=== PATIENT | female | born 1960 | race Hispanic/Latino ===

== ENCOUNTER 2025-01-19 21:16 | Inpatient (IN) | payer MEDICARE ==
[~2025-01-19] VITALS: Ht 162.6 cm; Wt 58.1 kg
[2025-01-19 22:22] LABS: BASOPHILS # (AUTO) 0.09 K/uL (0.00-0.20); BASOPHILS % (AUTO) 0.9 % (0.0-5.0); EOSINOPHILS # (AUTO) 0.06 K/uL (0.00-0.70); EOSINOPHILS % (AUTO) 0.6 % (0.0-8.0); HEMATOCRIT 39.1 % (36-48); IMMATURE GRANULOCYTE ABSOLUTE 0.04 K/uL (0-1); LYMPHOCYTES # (AUTO) 1.4 K/uL (1.0-4.8); LYMPHOCYTES % (AUTO) 14.2 % (21.0-51.0); MEAN CORPUSCULAR HEMOGLOBIN 27.4 pg (27.0-33.0); MEAN CORPUSCULAR HGB CONC 32.5 g/dL (32.0-36.0); MEAN CORPUSCULAR VOLUME 84.4 fL (79-99); MONOCYTES # (AUTO) 0.8 K/uL (0.1-1.0); MONOCYTES % (AUTO) 8.3 % (3.0-13.0); NEUTROPHILS # (AUTO) 7.2 K/uL (1.8-7.7); NEUTROPHILS % (AUTO) 75.6 % (40.0-77.0); PLATELET COUNT (AUTO) 442 K/uL (130-400); RED BLOOD CELL COUNT(AUTO) 4.63 MIL/uL (4.00-5.50); WHITE BLOOD COUNT (AUTO) 9.5 K/uL (4.8-10.8)
[2025-01-19 22:30] LABS: CREATININE 0.5 mg/dL (0.5-1.0); POTASSIUM 3.7 mmol/L (3.5-5.1)
[2025-01-19 22:35] LABS: ALBUMIN 3.8 g/dL (3.5-5.0); BILIRUBIN,DIRECT 0.1 mg/dL (0.0-0.3); BILIRUBIN,TOTAL 0.4 mg/dL (0.2-1.0); TOTAL PROTEIN, SERUM 7.6 g/dL (6.0-8.3)
[2025-01-19 23:07] LABS: APPEARANCE,URINE CLEAR (CLEAR); BILIRUBIN,URINE NEGATIVE (NEGATIVE); COLOR,URINE COLORLESS (YELLOW); GLUCOSE, URINE (UA) NEGATIVE (NEGATIVE); KETONES,URINE NEGATIVE (NEGATIVE); LEUKOCYTE ESTERASE ,URINE 75 Leu/uL (NEGATIVE); NITRATE,URINE NEGATIVE (NEGATIVE); OCCULT BLOOD,URINE NEGATIVE (NEGATIVE); PH,URINE 6.5 (5.0-8.0); PROTEIN,URINE NEGATIVE (NEGATIVE); UROBILINOGEN,URINE 0.2 mg/dL (0.2-1.0)
[2025-01-19 23:31] LABS: BACTERIA,URINE RARE /HPF (None Seen); RBC,URINE 0-1 /HPF (0-1)
--- NOTE | 2025-01-19 23:36 | NUR ---
PT CARE ASSUMED AT THIS TIME
[2025-01-19] MEDS ORDERED: IOHEXOL 350 MG/ML 100ML INFUS..BTL IV ONE (23:38)
[2025-01-19] MEDS: morPHINE 4 MG SYG IVP ONE (23:50)
[2025-01-20] MEDS ORDERED: hydrALAZine 20MG/ML VIAL IV ONE
--- NOTE | 2025-01-20 00:28 | HMCIMG ---
CT ABDOMEN/PELVIS W/CONTRAST HISTORY: Abdominal pain COMPARISON: None TECHNIQUE: Multiple sequential axial images of the abdomen and pelvis were obtained from the dome of the diaphragm through symphysis pubis. Patient was given 75 cc of Omnipaque through intravenous route. Oral contrast was not given. FINDINGS: There are interstitial fibrosis with bronchiectasis. No pleural effusion is seen bilaterally. There is no evidence of parenchymal disease or pulmonary nodule of the visualized lower lungs. Degenerative changes of the thoracolumbar spine are present. The heart is not enlarged. Liver is borderline enlarged measuring 16 cm. There is fluid filled small bowel loops and colon suggestive of enterocolitis. The liver, spleen, adrenal glands and pancreas are unremarkable. There is no evidence of hydronephrosis bilaterally. No evidence of renal stone is seen. Fecal material is seen in the colon. There are normal size retroperitoneal and mesenteric lymph nodes. No ascites is seen. No CT evidence of acute sinusitis is seen. Pelvic sidewalls are symmetric bilaterally. Bladder is moderately distended. IMPRESSION: 1. Fluid-filled small bowel loops and colon suggestive of enterocolitis. CT was performed with one or more following dose reduction techniques: automated exposure control, adjustment of the mA and kv according to patient's size, or use of a iterative reconstruction technique.
[2025-01-20] MEDS: cefTRIAXone 1G VIAL IVPB ONE (01:29)
[2025-01-20] MEDS: DICYCLOMINE 20MG (10MG/ML) AMP IM ONE (01:30)
[2025-01-20] MEDS: MAGNESIUM CITRATE 296 ML SOLUTION PO ONE (01:30)
--- NOTE | 2025-01-20 02:29 | ERN ---
General Chief Complaint: Abdominal Pain Stated Complaint: C/O LUQ PAIN WITH N X V Time Seen by MD: 22:00 Time Seen by Midlevel: 22:00 Source: patient History of Present Illness Initial Comments 64-year-old female who presents to the emergency department due to abdominal pain onset one week. Patient reports nausea, vomiting, constipation. Last bowel movement was three days ago. Denies any dysuria, fever, shortness of breath, chest pain or further associated symptoms. History of previous bowel obstruction. Allergies: Coded Allergies: No Known Allergies (Unverified Allergy, Unknown, 01/19/25) Past Medical History Past Medical History: Other Medical History Other: HX OF OBSTRUCTION Past Surgical History: Hysterectomy ROS Dictation Constitutional: Negative for fever,chills, and weight loss Eyes: Negative for injury, pain,redness, and discharge ENT: Negative for injury,pain or swelling Cardiovascular: Negative for chest pain, palpitations, and edema Respiratory: Negative for shortness of breath, cough, and wheezing, Abdomen/GI: Positive for abdominal pain, nausea, vomiting, and constipation Back: Negative for injury and pain : Negative for painful urination, bleeding or discharge MS/Extremity: Negative for injury and deformity Skin: Negative for rash, and discoloration Neuro: Negative for headache, weakness, numbness, tingling, and seizure Psych: Negative for suicide ideation, homicidal ideation, and hallucinations Physical Exam Physical Exam Dictation General: awake, alert, no acute distress Head/Face: Normocephalic, atraumatic Eyes: PERRL, EOMI, normal conjunctiva ENT: oral cavity clear, oral mucosa moist Neck: Supple, normal range of motion Cardiovascular: RRR, normal S1/S2 Respiratory: CTAB, no respiratory distress, no rales or wheezes Abdomen: Soft, non-tender, left upper quadrant or tenderness, normal bowel sounds, no guarding or rebound. Skin: Warm, dry, normal turgor, no rash MS/Extremity: Pulses equal, no cyanosis, neurovascular intact, FROM Neuro: COAx4, GCS 15, strength 5/5, CN 2-12 intact, normal cerebellar exam, normal gait Psych: Normal behavior, mood, and affect normal Results Laboratory and Microbiology Lab and Micro Result Laboratory Tests Test 01/19/25 22:15 01/19/25 22:57 White Blood Count 9.5 K/uL (4.8-10.8) Red Blood Count 4.63 MIL/uL (4.00-5.50) Hemoglobin 12.7 g/dL (12.0-16.0) Hematocrit 39.1 % (36-48) Mean Corpuscular Volume 84.4 fL (79-99) Mean Corpuscular Hemoglobin 27.4 pg (27.0-33.0) Mean Corpuscular Hemoglobin Concent 32.5 g/dL (32.0-36.0) Red Cell Distribution Width 15.0 % (11.0-15.5) Platelet Count 442 K/uL (130-400) H Mean Platelet Volume 9.9 fL (7.5-10.5) Immature Granulocyte % (Auto) 0.4 % (0-1) Neutrophils (%) (Auto) 75.6 % (40.0-77.0) Lymphocytes (%) (Auto) 14.2 % (21.0-51.0) L Monocytes (%) (Auto) 8.3 % (3.0-13.0) Eosinophils (%) (Auto) 0.6 % (0.0-8.0) Basophils (%) (Auto) 0.9 % (0.0-5.0) Neutrophils # (Auto) 7.2 K/uL (1.8-7.7) Lymphocytes # (Auto) 1.4 K/uL (1.0-4.8) Monocytes # (Auto) 0.8 K/uL (0.1-1.0) Eosinophils # (Auto) 0.06 K/uL (0.00-0.70) Basophils # (Auto) 0.09 K/uL (0.00-0.20) Absolute Immature Granulocyte (auto 0.04 K/uL (0-1) Nucleated Red Blood Cells 0.0 % (0.0-0.19) Sodium Level 137 mmol/L (136-145) Potassium Level 3.7 mmol/L (3.5-5.1) Chloride Level 100 mmol/L (101-111) L Carbon Dioxide Level 28 mmol/L (21-32) Blood Urea Nitrogen 12 mg/dL (7-18) Creatinine 0.5 mg/dL (0.5-1.0) Glomerular Filtration Rate Calc 103 mL/min (>90) Random Glucose 101 mg/dL (70-105) Total Calcium 9.1 mg/dL (8.5-10.1) Total Bilirubin 0.4 mg/dL (0.2-1.0) Direct Bilirubin 0.1 mg/dL (0.0-0.3) Aspartate Amino Transf (AST/SGOT) 36 U/L (10-37) Alanine Aminotransferase (ALT/SGPT) 40 U/L (12-78) Alkaline Phosphatase 164 U/L (50-136) H Total Protein 7.6 g/dL (6.0-8.3) Albumin 3.8 g/dL (3.5-5.0) Lipase 33 U/L (16-77) Urine Color COLORLESS (YELLOW) Urine Appearance CLEAR (CLEAR) Urine pH 6.5 (5.0-8.0) Urine Specific [place] 1.005 (1.001-1.031) Urine Protein NEGATIVE mg/dL (NEGATIVE) Urine Glucose (UA) NEGATIVE mg/dL (NEGATIVE) Urine Ketones NEGATIVE mg/dL (NEGATIVE) Urine Occult Blood NEGATIVE (NEGATIVE) Urine Nitrate NEGATIVE (NEGATIVE) Urine Bilirubin NEGATIVE mg/dL (NEGATIVE) Urine Urobilinogen 0.2 mg/dL (0.2-1.0) Urine Leukocyte Esterase 75 David/uL (NEGATIVE) H Urine RBC 0-1 /HPF (0-1) Urine WBC 6-10 /HPF (0-1) H Urine Bacteria RARE /HPF (None Seen) Labs Reviewed?: Yes EKG/XRAY/US/CT/MRI CT Scan Comment REASON: R/O obstruction, generalized abdominal pain ORDERING PHYSICIAN: DANIEL VELASQUEZ PROCEDURE: ABD PEL W - CT ABDOMEN/PELVIS W/CONTRAST CT ABDOMEN/PELVIS W/CONTRAST HISTORY: Abdominal pain COMPARISON: None TECHNIQUE: Multiple sequential axial images of the abdomen and pelvis were obtained from the dome of the diaphragm through symphysis pubis. Patient was given 75 cc of Omnipaque through intravenous route. Oral contrast was not given. FINDINGS: There are interstitial fibrosis with bronchiectasis. No pleural effusion is seen bilaterally. There is no evidence of parenchymal disease or pulmonary nodule of the visualized lower lungs. Degenerative changes of the thoracolumbar spine are present. The heart is not enlarged. Liver is borderline enlarged measuring 16 cm. There is fluid filled small bowel loops and colon suggestive of enterocolitis. The liver, spleen, adrenal glands and pancreas are unremarkable. There is no evidence of hydronephrosis bilaterally. No evidence of renal stone is seen. Fecal material is seen in the colon. There are normal size retroperitoneal and mesenteric lymph nodes. No ascites is seen. No CT evidence of acute sinusitis is seen. Pelvic sidewalls are symmetric bilaterally. Bladder is moderately distended. IMPRESSION: 1. Fluid-filled small bowel loops and colon suggestive of enterocolitis. CT was performed with one or more following dose reduction techniques: automated exposure control, adjustment of the mA and kv according to patient's size, or use of a iterative reconstruction technique. DICTATED BY: ALEX MEADE MD DATE: 01/20/25 0021 [facility] MDM: Differential diagnosis: Pancreatitis, UTI, bowel obstruction, constipation Rationale:64-year-old female who presents to the emergency department due to abdominal pain onset one week. Patient reports nausea, vomiting, constipation. Last bowel movement was three days ago. Denies any dysuria, fever, shortness of breath, chest pain or further associated symptoms. Labs obtained CBC nonspecific, hypochloremia 100, mildly elevated alk phosphatase 164, UA indicates a urinary tract infection. CT abdomen pelvis indicates fluid-filled small bowel loops and colon suggestive of enteric colitis. IV fluids, Rocephin, morphine, dicyclomine administered in the ED. On re-examination patient verbalized abdominal pain continues. Patient did initiated with multiple episodes of diarrhea in the ED after magnesium citrate was given. Patient and has been were educated on findings, diagnosis, decision for admission. Patient verbalized understanding and agrees with admission. Case discussed with hospitalist who accepts admission. Previous outside records reviewed: Old ER visits. Risk of complication and/or morbidity or mortality of patient management: None Medications-Per medication reconciliation Need for hospitalization: Patient does meet criteria for hospitalization. Need for emergency major/minor surgery: No There are no social concerns with this patient. Prescription drug management Prescriptions will include symptomatic care Patient's prior external medical records from other ER visits were reviewed by me as indicated. Prior testing and results from previous visits were reviewed. Prior tests were taken into account with medical decision making and resource utilization, independent historian/historians were used to obtain complete medical history. I independently interpreted the test that were performed, results were reviewed by me and considered findings on radiology if ordered. Medical management and examination interpretation discussions were had by me with other qualified healthcare professionals as indicated for the patient's care. ED Course Orders Procedure Category Date Status Time Cbc With Differential LAB 01/19/25 Complete 22:00 Basic Metabolic Panel LAB 01/19/25 Complete 22:00 Urinalysis LAB 01/19/25 Complete W/Microscopic 22:00 Lipase LAB 01/19/25 Complete 22:00 Hepatic Function Panel LAB 01/19/25 Complete 22:00 Ct Abdomen/Pelvis CT 01/19/25 Resulted W/Contrast 22:56 Morphine 4mg Syg PHA 01/19/25 Complete (Morphine 4mg Syg) 23:00 Culture Urine JOSE D 01/19/25 In Process 23:30 Iohexol (Omnipaque) PHA 01/19/25 Complete 23:38 Hydralazine 20mg Inj PHA 01/20/25 Complete (Apresoline 20mg In 00:00 Ceftriaxone 1g Vial PHA 01/20/25 Complete (Rocephine 1g Inj) 01:00 Magnesium Citrate PHA 01/20/25 Complete (Magnesium Citrate) 01:00 Dicyclomine Hcl PHA 01/20/25 Complete (Bentyl 20mg Inj) 01:00 0.9%Nacl 1000ml (Ns PHA 01/20/25 Logged 1000ml) 02:30 Current Medications Medications (Trade) Dose Ordered Sig/Sarah Route PRN Reason Start Time Stop Time Status Last Admin Dose Admin Ceftriaxone Sodium (ROCEphine 1G INJ) 1 gm ONCE ONCE IVPB 01/20/25 01:00 01/20/25 01:01 DC 01/20/25 01:29 Dicyclomine HCl (Bentyl 20mg Inj) 10 mg ONCE ONCE IM 01/20/25 01:00 01/20/25 01:01 DC 01/20/25 01:30 Hydralazine HCl (APRESOLine 20MG INJ) 10 mg ONCE ONCE IV 01/20/25 00:00 01/20/25 01:26 DC Iohexol (Omnipaque) 35,000 mg STK-MED ONCE IV 01/19/25 23:38 01/19/25 23:38 DC Magnesium Citrate (Magnesium Citrate) 296 ml ONCE ONCE PO 01/20/25 01:00 01/20/25 01:01 DC 01/20/25 01:30 Morphine Sulfate (morPHINE 4MG SYG) 4 mg ONCE ONCE IVP 01/19/25 23:00 5/7/25 23:01 DC 01/19/25 23:50 Sodium Chloride 1,000 ml @ 0 mls/hr ONCE ONCE IV 01/20/25 02:30 01/20/25 02:31 UNV Vital Signs Date Time Temp Pulse Resp B/P (MAP) Pulse Ox O2 Delivery O2 Flow Rate FiO2 01/20/25 00:27 75 16 147/59 99 Room Air* 0 21 01/19/25 23:40 98.1 85 17 208/82 99 Room Air* 0 21 01/19/25 21:20 99.7 89 20 205/77 99 Room Air DX & DISP Disposition: Inpatient Decision to Admit Date: January 20, 2025 Departure Impression: Primary Impression: Enterocolitis Additional Impressions: UTI (urinary tract infection), Intractable abdominal pain Condition: Stable Referrals: SELF,REFERRAL (PCP) I performed the substantive portion of the visit. I have reviewed and personally made and approve the management plan that is documented in the notes by myself or the MELIDA. I acknowledge full responsibility for the patient's management plan. DANIEL VELASQUEZ January 20, 2025 02:29
[2025-01-20] MEDS: 0.9%NACL 1000ML 1,000 ML IV ONE (02:30)
--- NOTE | 2025-01-20 02:54 | HP ---
[facility] HISTORY AND PHYSICAL Date of Service: January 20, 2025 Time of Service: 02:54 upervising physicians/attending physicians: Dr. Mares and Dr. Brenda Tang HISTORY OF PRESENT ILLNESS: Ms. Dela Cruz is a 64-year-old female with a history of about obstruction who pr esented to [facility] [place] ED for evaluation of abdominal pain onset one week. The patient also reported nausea, vomiting, and constipation. Last bowel movement was three days ago. Denies any dysuria, fever, shortness of breath, chest pain or further associated symptoms. Labs obtained CBC nonspecific, hypochloremia 100, mildly elevated alk phosphatase 164, UA indicates a urinary tract infection. CT abdomen pelvis indicates fluid-filled small bowel loops and colon suggestive of enteric coli tis. IV fluids, Rocephin, morphine, dicyclomine administered in the ED. ED reported that on re-examination patient verbalized abdominal pain continues. Patient did initiated with multiple episodes of diarrhea in the ED after magnesium citrate was given. ED provider request patient be admitted with the diagnosis of enterocolitis, UTI, intractable abdominal pain. Patient was admitted by [facility] hospitalist team. I went to assess patient at bedside. Patient was sitting in the bedside commode. Patient appeared comfortable, breathing was even and unlabored, in no distress. Informed patient of labs, diagnostics, and plan of care. She verbalized understanding and is in agreement with the plan. Plan and assessment are listed below. REVIEW OF SYSTEMS 12-point ROS reviewed with the patient. All pertinent positives mentioned above. Otherwise negative, noncontributory, nonpertinent. PAST MEDICAL HISTORY: As mentioned above PAST SURGICAL HISTORY: Hysterectomy PAST SOCIAL HISTORY: Denied alcohol, tobacco, illicit drug use FAMILY HISTORY: Noncontributory Coded Allergies: No Known Allergies (Unverified Allergy, Unknown, 01/19/25) PHYSICAL EXAM GENERAL APPEARANCE: The patient is awake, alert, and oriented, in no acute cardiopulmonary distress. NEUROLOGICAL: Cranial nerves II-XII grossly intact. Motor is 5/5 in bilateral upper and lower extremities proximal to distal. No sensory deficits. HEENT: Face is symmetric. Pupils are equal and reactive. Extraocular movements are intact. NECK: Supple. No JVD. No thyromegaly. No submental, submandibular, pre-/postauricular, occipital or supraclavicular lymphadenopathy. CHEST: Normal chest expansion. No Telemetry. LUNGS: Absence of any rales, rhonchi or any wheezing. CARDIOVASCULAR: Regular. S1 and S2 normal. No appreciable rubs, murmurs or gallops. ABDOMEN: Soft, nontender, and nondistended. There is no rebound, voluntary guarding, or rigidity. : Deferred. No [place]. EXTREMITIES: Non-edematous and not cyanotic. No clubbing. Good capillary refill. SKIN: No skin breakdown. Vital Sign (Last 24 Hours) 01/19/25 01/20/25 23:40 00:27 Temp 98.1 Pulse 75 Resp 16 B/P (MAP) 147/59 Pulse Ox 99 O2 Delivery Room Air* O2 Flow Rate 0 FiO2 21 LABS: Laboratory: Test 01/19/25 22:57 01/19/25 22:15 Range/Units Urine Color COLORLESS YELLOW Urine Appearance CLEAR CLEAR Urine pH 6.5 5.0-8.0 Urine Specific [place] 1.005 1.001-1.031 Urine Protein NEGATIVE NEGATIVE mg/dL Urine Glucose (UA) NEGATIVE NEGATIVE mg/dL Urine Ketones NEGATIVE NEGATIVE mg/dL Urine Occult Blood NEGATIVE NEGATIVE Urine Nitrate NEGATIVE NEGATIVE Urine Bilirubin NEGATIVE NEGATIVE mg/dL Urine Urobilinogen 0.2 0.2-1.0 mg/dL Urine Leukocyte Esterase 75 H NEGATIVE David/uL Urine RBC 0-1 0-1 /HPF Urine WBC 6-10 H 0-1 /HPF Urine Bacteria RARE None Seen /HPF White Blood Count 9.5 4.8-10.8 K/uL Red Blood Count 4.63 4.00-5.50 MIL/uL Hemoglobin 12.7 12.0-16.0 g/dL Hematocrit 39.1 36-48 % Mean Corpuscular Volume 84.4 79-99 fL Mean Corpuscular Hemoglobin 27.4 27.0-33.0 pg Mean Corpuscular Hemoglobin Concent 32.5 32.0-36.0 g/dL Red Cell Distribution Width 15.0 11.0-15.5 % Platelet Count 442 H 130-400 K/uL Mean Platelet Volume 9.9 7.5-10.5 fL Immature Granulocyte % (Auto) 0.4 0-1 % Neutrophils (%) (Auto) 75.6 40.0-77.0 % Lymphocytes (%) (Auto) 14.2 L 21.0-51.0 % Monocytes (%) (Auto) 8.3 3.0-13.0 % Eosinophils (%) (Auto) 0.6 0.0-8.0 % Basophils (%) (Auto) 0.9 0.0-5.0 % Neutrophils # (Auto) 7.2 1.8-7.7 K/uL Lymphocytes # (Auto) 1.4 1.0-4.8 K/uL Monocytes # (Auto) 0.8 0.1-1.0 K/uL Eosinophils # (Auto) 0.06 0.00-0.70 K/uL Basophils # (Auto) 0.09 0.00-0.20 K/uL Absolute Immature Granulocyte (auto 0.04 0-1 K/uL Nucleated Red Blood Cells 0.0 0.0-0.19 % Sodium Level 137 136-145 mmol/L Potassium Level 3.7 3.5-5.1 mmol/L Chloride Level 100 L 101-111 mmol/L Carbon Dioxide Level 28 21-32 mmol/L Blood Urea Nitrogen 12 7-18 mg/dL Creatinine 0.5 0.5-1.0 mg/dL Glomerular Filtration Rate Calc 103 >90 mL/min Random Glucose 101 70-105 mg/dL Total Calcium 9.1 8.5-10.1 mg/dL Total Bilirubin 0.4 0.2-1.0 mg/dL Direct Bilirubin 0.1 0.0-0.3 mg/dL Aspartate Amino Transf (AST/SGOT) 36 10-37 U/L Alanine Aminotransferase (ALT/SGPT) 40 12-78 U/L Alkaline Phosphatase 164 H 50-136 U/L Total Protein 7.6 6.0-8.3 g/dL Albumin 3.8 3.5-5.0 g/dL Lipase 33 16-77 U/L Current Medications Medications (Trade) Dose Ordered Sig/Sarah Route PRN Reason Start Time Stop Time Status Last Admin Dose Admin Acetaminophen (TYLenol 325MG TAB) 650 mg Q6H PRN PO FEVER/MILD PAIN LEVEL 1-3 01/20/25 03:00 02/19/25 02:59 UNV Acetaminophen (TYLenol 650MG SUPPOSITORY) 650 mg Q6H PRN RC FEVER / MILD PAIN 1-3 IF NPO 01/20/25 03:00 02/19/25 02:59 UNV Docusate Sodium (COLace 100MG CAP) 100 mg BID PRN PO c 01/20/25 03:00 02/19/25 02:59 UNV Enoxaparin Sodium (Lovenox) 30 mg DAILY SQ 01/20/25 09:00 02/19/25 08:59 UNV Ferrous Sulfate (Ferrous Sulfate) 325 mg DAILY PO 01/20/25 09:00 02/19/25 08:59 UNV Hydralazine HCl (APRESOLine 20MG INJ) 10 mg Q6H PRN IV SBP GREATER THAN 160 01/20/25 03:00 02/19/25 02:59 UNV Insulin Human Regular (humuLIN R 100 UNIT/ML 3ML) INSULIN SLIDING SCAL... ACHS SQ 01/20/25 07:30 02/19/25 07:29 UNV Lactated Ringer's 1,000 ml @ 75 mls/hr [id number] IV 01/20/25 03:00 02/19/25 02:59 UNV Lactulose (Constulose 20gm/ 30ml Udcup) 20 gm Q6H PRN PO CONSTIPATION 01/20/25 03:00 02/19/25 02:59 UNV Ondansetron HCl (zoFRAN 4MG INJ) 4 mg Q6H PRN IVP NAUSEA/VOMITING 01/20/25 03:00 02/19/25 02:59 UNV Temazepam (restORIL 15 MG CAP) 15 mg HS PRN PO INSOMNIA/SLEEP 01/20/25 03:00 02/19/25 02:59 UNV DIAGNOSTICS / RADIOLOGY: [ ] ASSESSMENT: Enterocolitis, POA, per CT on 01/19/2025 Acute complicated cystitis, POA Constipation Intractable abdominal pain 2/2 above History of bowel obstruction Thrombocytosis, POA Hypochloremia Elevated alk-phos PLAN: -Admit to medical floor. -Rocephin 2 mg IV daily. -LR at 75 mL an hour. (ED administered NS1 L bolus) -P.r.n. medications for: Pain management, nausea, vomiting, constipation, hypertension, fever. -Glucometer checks AC & HS needed with insulin regular sliding scale coverage as needed. -Blood pressure checks every 4 hours and as needed. -Reconcile home medications once available. -AM labs. -Monitor renal and liver function -Monitor electrolytes and treat accordingly. -GI and DVT prophylaxis: Lovenox and Pepcid ADVANCED CARE PLANNING 1. Which of the following were discussed? Hospice Care - No Therapeutic options - Yes Advance Directives - Yes Other discussions - 2. Discussed with who? Patient 3. Voluntary nature of this service was explained to the patient? Yes 4. Amount of time spent - __ over 35 minutes 5. Reviewed by Physician? (if this service was performed by MELIDA) Yes This dictation was prepared using [employer] voice recognition software. As a result, errors may occur. When identified, these errors have been corrected. While every attempt is made to correct errors during dictation, errors may still exist. ATTESTATION BY PHYSICIAN I have seen and examined the patient. I reviewed the documentation, medical decision making, and treatment plan as noted by the mid-level provider above. I agree with the findings and plan of care. ROSA HANSEN [employer]ER SERV[employer] SALES [employer]OC[employer]ATE January 20, 2025 02:54
[2025-01-20] MEDS ORDERED: doCUSate SODIUM 100 MG CAP PO PRN (03:00)
[2025-01-20] MEDS ORDERED: LACTULOSE 20 GM/30 ML UDCUP PO PRN (03:00)
[2025-01-20] MEDS: LACTATED RINGERS 1000ML 1,000 ML IV SCH (03:00)
[2025-01-20] MEDS ORDERED: acetaMINOPHEN 650 MG SUPPOSITORY RC PRN (03:00)
[2025-01-20 04:22] LABS: AMPHET/METH SCREEN,URINE NEGATIVE (NEGATIVE); BARBITURATE SCREEN, URINE NEGATIVE (NEGATIVE); BENZODIAZEPINES SCREEN,URINE NEGATIVE (NEGATIVE); CANNABINOID SCREEN,URINE NEGATIVE (NEGATIVE); COCAINE SCREEN,URINE NEGATIVE (NEGATIVE); OPIATE SCREEN,URINE NEGATIVE (NEGATIVE); PHENCYCLIDINE SCREEN,URINE NEGATIVE (NEGATIVE)
[2025-01-20] MEDS: acetaMINOPHEN 325 MG TAB PO PRN (05:46)
[2025-01-20] MEDS: ketOROlac 15MG/ML VIAL (15MG/ML) IV PRN (06:15)
--- NOTE | 2025-01-20 07:22 | NUR ---
REPORT GIVEN TO DOROTHEA LEPE AT THIS TIME
[2025-01-20] MEDS: INSULIN humuLIN R 100 UNIT/ML 3ML SQ SCH (07:30)
--- NOTE | 2025-01-20 08:21 | PN ---
[facility] PROGRESS NOTE Date of Service: January 20, 2025 Time of Service: 08:10 SUBJECTIVE: Patient is a 64 year old female with a past medical history of Scleroderma presented to the Emergency Department with complaints of abdominal pain for 1 week, along with nausea, vomiting, and constipation. The patient denies diarrhea, fever, shortness of breath, and chest pain. The patient reports her last bowel movement was [address] scan of the abdomen and pelvis showed fluid filled small bowel loops and colon suggestive of enterocolitis. The patient states that on FridayJanuary 16, she had episodes of diarrhea that lasted for 1 day. The following January 18, the patient reports experiencing episodes of abdominal bloating, and a loss of appetite. The patient states that the abdominal bloating and abdominal pain lasted throughout the entire night, and by Friday she took a whole bottle of magnesium citrate to help alleviate her pain. The patient states that by 7pm, she began have episodes of vomiting, and constipation. The patient states that she had a bowel obstruction 10 years ago. The patient does not report taking any medications at home. 01/20: Patient was seen and examined this morning at bedside. Patient continues on Ceftriaxone. Patient denies chest pain, shortness of breath, nausea, vomiting, fever, chills, diarrhea. The patient reports her abdominal pain is a 4/10 on the pain scale, and that the tenderness is worse in the left upper quadrant of her abdomen. The patient reports 3 episodes of diarrhea this morning, but denies passing gas. The patient is currently NPO except for ice chips. The patient is afebrile, saturating well on room air. Per nurse, the patients blood pressure has been high. Once pain medication is given, there is a significant drop to her blood pressure. We will continue to monitor the patient. The patient will be getting a abdominal x-ray in the AM. REVIEW OF SYSTEMS CONSTITUTIONAL: Denies fevers, chills, or night sweats. No unintentional weight loss reported. NEUROLOGICAL: Denies headache, amaurosis fugax, motor weakness, sensory deficit, vertigo/spinning sensation, gait abnormalities, or tremors. ENT: No hearing loss, otalgia, otorrhea, rhinitis, rhinorrhea, hoarseness, or sore throat. CARDIOVASCULAR: Denies any exertional angina, dyspnea on exertion, orthopnea, paroxysmal nocturnal dyspnea, palpitations, life-threatening arrhythmias, claudication. PULMONARY: Denies any shortness of breath, cough, phlegm/sputum, hemoptysis, pleuritic chest pain. SLEEP: Denies morning headaches, daytime somnolence or napping. Denies difficulty falling asleep, staying asleep, waking from sleep. Denies knowledge of snoring. GASTROINTESTINAL: Denies any type of dysphagia to either liquids or solids. Denies nausea, vomiting, pyrosis, early satiety, abdominal pain, diarrhea, constipation, or changes in stool consistency or caliber. Denies coffee-ground emesis, hematemesis, hematochezia, or melanotic stools. GENITOURINARY: Denies frequency, urgency, nocturia, hematuria or incontinence (Storage/Irritative symptoms.) Low urinary stream, straining to void, urinary intermittency or hesitancy, splitting of the voiding stream, terminal dribbling. ENDOCRINOLOGIC: Denies polyuria, polydipsia, polyphagia or heat/cold intolerances. HEMATOLOGIC: Denies thrombophilia/previous clots, or coagulopathy/bleeding disorders. ONCOLOGIC: Denies personal history of malignancy. DERMATOLOGIC: Denies rashes or pruritus. PSYCHIATRIC: Denies any suicidal or homicidal ideation. Denies hallucinations. PHYSICAL EXAM GENERAL APPEARANCE: The patient is awake, alert, and oriented, in no acute cardiopulmonary distress. NEUROLOGICAL: Cranial nerves II-XII grossly intact. Motor is 5/5 in bilateral upper and lower extremities proximal to distal. No sensory deficits. HEENT: Face is symmetric. Pupils are equal and reactive. Extraocular movements are intact. NECK: Supple. No JVD. No thyromegaly. No submental, submandibular, pre- /postauricular, occipital or supraclavicular lymphadenopathy. CHEST: Normal chest expansion. No Telemetry. LUNGS: Absence of any rales, rhonchi or any wheezing. CARDIOVASCULAR: Regular. S1 and S2 normal. No appreciable rubs, murmurs or gallops. ABDOMEN: Soft, nondistended. Tenderness in left upper quadrant. There is no re bound, voluntary guarding, or rigidity. Bowel sounds heard in all four quadrants. : Deferred. No [place]. EXTREMITIES: Non-edematous and not cyanotic. No clubbing. Good capillary refill. SKIN: No skin breakdown. Vital Signs (last 8hr) Date Time Temp Pulse Resp B/P (MAP) Pulse Ox O2 Delivery O2 Flow Rate FiO2 01/20/25 06:37 75 16 159/72 98 Room Air* 0 21 01/20/25 06:12 80 14 181/65 98 Room Air* 0 21 01/20/25 04:25 70 17 157/65 99 Room Air* 0 21 01/20/25 01:50 69 14 139/61 99 Room Air* 0 21 01/20/25 00:27 75 16 147/59 99 Room Air* 0 21 LABS: Laboratory: Test 01/19/25 22:57 01/19/25 22:15 Range/Units Urine Color COLORLESS YELLOW Urine Appearance CLEAR CLEAR Urine pH 6.5 5.0-8.0 Urine Specific [place] 1.005 1.001-1.031 Urine Protein NEGATIVE NEGATIVE mg/dL Urine Glucose (UA) NEGATIVE NEGATIVE mg/dL Urine Ketones NEGATIVE NEGATIVE mg/dL Urine Occult Blood NEGATIVE NEGATIVE Urine Nitrate NEGATIVE NEGATIVE Urine Bilirubin NEGATIVE NEGATIVE mg/dL Urine Urobilinogen 0.2 0.2-1.0 mg/dL Urine Leukocyte Esterase 75 H NEGATIVE David/uL Urine RBC 0-1 0-1 /HPF Urine WBC 6-10 H 0-1 /HPF Urine Bacteria RARE None Seen /HPF Urine Opiates Screen NEGATIVE NEGATIVE Urine Barbiturates Screen NEGATIVE NEGATIVE Urine Phencyclidine Screen NEGATIVE NEGATIVE Urine Amphetamines Screen NEGATIVE NEGATIVE Urine Benzodiazepines Screen NEGATIVE NEGATIVE Urine Cocaine Screen NEGATIVE NEGATIVE Urine Marijuana (THC) Screen NEGATIVE NEGATIVE White Blood Count 9.5 4.8-10.8 K/uL Red Blood Count 4.63 4.00-5.50 MIL/uL Hemoglobin 12.7 12.0-16.0 g/dL Hematocrit 39.1 36-48 % Mean Corpuscular Volume 84.4 79-99 fL Mean Corpuscular Hemoglobin 27.4 27.0-33.0 pg Mean Corpuscular Hemoglobin Concent 32.5 32.0-36.0 g/dL Red Cell Distribution Width 15.0 11.0-15.5 % Platelet Count 442 H 130-400 K/uL Mean Platelet Volume 9.9 7.5-10.5 fL Immature Granulocyte % (Auto) 0.4 0-1 % Neutrophils (%) (Auto) 75.6 40.0-77.0 % Lymphocytes (%) (Auto) 14.2 L 21.0-51.0 % Monocytes (%) (Auto) 8.3 3.0-13.0 % Eosinophils (%) (Auto) 0.6 0.0-8.0 % Basophils (%) (Auto) 0.9 0.0-5.0 % Neutrophils # (Auto) 7.2 1.8-7.7 K/uL Lymphocytes # (Auto) 1.4 1.0-4.8 K/uL Monocytes # (Auto) 0.8 0.1-1.0 K/uL Eosinophils # (Auto) 0.06 0.00-0.70 K/uL Basophils # (Auto) 0.09 0.00-0.20 K/uL Absolute Immature Granulocyte (auto 0.04 0-1 K/uL Nucleated Red Blood Cells 0.0 0.0-0.19 % Sodium Level 137 136-145 mmol/L Potassium Level 3.7 3.5-5.1 mmol/L Chloride Level 100 L 101-111 mmol/L Carbon Dioxide Level 28 21-32 mmol/L Blood Urea Nitrogen 12 7-18 mg/dL Creatinine 0.5 0.5-1.0 mg/dL Glomerular Filtration Rate Calc 103 >90 mL/min Random Glucose 101 70-105 mg/dL Total Calcium 9.1 8.5-10.1 mg/dL Total Bilirubin 0.4 0.2-1.0 mg/dL Direct Bilirubin 0.1 0.0-0.3 mg/dL Aspartate Amino Transf (AST/SGOT) 36 10-37 U/L Alanine Aminotransferase (ALT/SGPT) 40 12-78 U/L Alkaline Phosphatase 164 H 50-136 U/L Total Protein 7.6 6.0-8.3 g/dL Albumin 3.8 3.5-5.0 g/dL Lipase 33 16-77 U/L Current Medications Medications (Trade) Dose Ordered Sig/Sarah Route PRN Reason Start Time Stop Time Status Last Admin Dose Admin Acetaminophen (TYLenol 325MG TAB) 650 mg Q6H PRN PO FEVER/MILD PAIN LEVEL 1-3 01/20/25 03:00 02/19/25 02:59 Acetaminophen (TYLenol 650MG SUPPOSITORY) 650 mg Q6H PRN RC FEVER / MILD PAIN 1-3 IF NPO 01/20/25 03:00 02/19/25 02:59 Ceftriaxone Sodium (Rocephin 2gm Inj) 2 gm Q24H IVPB 01/21/25 01:00 01/31/25 00:59 Docusate Sodium (COLace 100MG CAP) 100 mg BID PRN PO c 01/20/25 03:00 02/19/25 02:59 Enoxaparin Sodium (Lovenox) 30 mg DAILY SQ 01/20/25 09:00 02/19/25 08:59 Ferrous Sulfate (Ferrous Sulfate) 325 mg DAILY PO 01/20/25 09:00 02/19/25 08:59 Hydralazine HCl (APRESOLine 20MG INJ) 10 mg Q6H PRN IV SBP GREATER THAN 160 01/20/25 03:00 02/19/25 02:59 Insulin Human Regular (humuLIN R 100 UNIT/ML 3ML) INSULIN SLIDING SCAL... ACHS SQ 01/20/25 07:30 02/19/25 07:29 Ketorolac Tromethamine (toRADol) 15 mg Q6H PRN IV MODERATE PAIN (4-6) 01/20/25 06:00 01/25/25 05:59 01/20/25 06:15 15 MG Lactated Ringer's 1,000 ml @ 75 mls/hr [id number] IV 01/20/25 03:00 02/19/25 02:59 01/20/25 03:00 75 MLS/HR Lactulose (Constulose 20gm/ 30ml Udcup) 20 gm Q6H PRN PO CONSTIPATION 01/20/25 03:00 02/19/25 02:59 Ondansetron HCl (zoFRAN 4MG INJ) 4 mg Q6H PRN IVP NAUSEA/VOMITING 01/20/25 03:00 02/19/25 02:59 Temazepam (restORIL 15 MG CAP) 15 mg HS PRN PO INSOMNIA/SLEEP 01/20/25 03:00 02/19/25 02:59 DIAGNOSTICS / RADIOLOGY: [facility] [address] [place] [id number] IMAGING REPORT Signed PATIENT: DMITRI KELLY MR#: [id number] : 1960 SEX: F AGE: 64 LOCATION: [facility] ORDER 56 STATUS: REG ER REPORT#: [id number] SERVICE 55 REASON: R/O obstruction, generalized abdominal pain ORDERING PHYSICIAN: DANIEL VELASQUEZ PROCEDURE: ABD PEL W - CT ABDOMEN/PELVIS W/CONTRAST CT ABDOMEN/PELVIS W/CONTRAST HISTORY: Abdominal pain COMPARISON: None TECHNIQUE: Multiple sequential axial images of the abdomen and pelvis were obtained from the dome of the diaphragm through symphysis pubis. Patient was given 75 cc of Omnipaque through intravenous route. Oral contrast was not given. FINDINGS: There are interstitial fibrosis with bronchiectasis. No pleural effusion is seen bilaterally. There is no evidence of parenchymal disease or pulmonary nodule of the visualized lower lungs. Degenerative changes of the thoracolumbar spine are present. The heart is not enlarged. Liver is borderline enlarged measuring 16 cm. There is fluid filled small bowel loops and colon suggestive of enterocolitis. The liver, spleen, adrenal glands and pancreas are unremarkable. There is no evidence of hydronephrosis bilaterally. No evidence of renal stone is seen. Fecal material is seen in the colon. There are normal size retroperitoneal and mesenteric lymph nodes. No ascites is seen. No CT evidence of acute sinusitis is seen. Pelvic sidewalls are symmetric bilaterally. Bladder is moderately distended. IMPRESSION: 1. Fluid-filled small bowel loops and colon suggestive of enterocolitis. CT was performed with one or more following dose reduction techniques: automated exposure control, adjustment of the mA and kv according to patient's size, or use of a iterative reconstruction technique. DICTATED BY: ALEX MEADE MD DATE: 01/20/2520 ELECTRONICALLY SIGNED BY: ALEX MEADE MD DATE: 01/20/2527 ASSESSMENT: Enterocolitis Scleroderma PLAN: Enterocolitis -Keep patient NPO. Advance as tolerated. -IV fluids to maintain hydration and electrolyte balance. -Antibiotics: Ceftriaxone -Stool studies pending -Monitor electrolytes, and replace as needed. -Monitor for signs of obstruction: persistent vomiting, severe distention, absent bowel sounds. -Surgery consult if concern for worsening symptoms. -Hypoglycemia protocol -Keep hgb >7, transfuse if below 7. -Abdominal x-ray in SHON MARQUEZ MD January 20, 2025 08:21
[2025-01-20] MEDS: FAMOTIDINE 20MG TAB PO SCH (09:00)
[2025-01-20] MEDS: FERROUS SULFATE 325 MG TABLET.DR PO SCH (09:00)
--- NOTE | 2025-01-20 09:13 | NUR ---
Patient stated she does not take any home medication.
[2025-01-20 09:21] LABS: HEMATOCRIT 36.9 % (36-48); MEAN CORPUSCULAR HEMOGLOBIN 27.1 pg (27.0-33.0); MEAN CORPUSCULAR VOLUME 84.8 fL (79-99); RED BLOOD CELL COUNT(AUTO) 4.35 MIL/uL (4.00-5.50); WHITE BLOOD COUNT (AUTO) 9.6 K/uL (4.8-10.8)
--- NOTE | 2025-01-20 09:27 | NUR ---
Patient refused glucometer check. Stated she is not diabetic.
[2025-01-20 09:35] LABS: HEMOGLOBIN A1C 6.1 % (4.0-6.0)
[2025-01-20] MEDS: ENOXAPARIN SODIUM 30 MG/0.3 ML SQ SCH (09:36)
[2025-01-20 09:45] LABS: ALBUMIN 3.2 g/dL (3.5-5.0); BILIRUBIN,TOTAL 0.4 mg/dL (0.2-1.0); CREATININE 0.4 mg/dL (0.5-1.0); MAGNESIUM 2.9 mg/dL (1.80-2.40); PHOSPHORUS 3.2 mg/dL (2.5-4.9); POTASSIUM 3.3 mmol/L (3.5-5.1); THYROID STIMULATING HORMONE 1.82 uIU/mL (0.36-3.74); TOTAL PROTEIN, SERUM 6.3 g/dL (6.0-8.3)
--- NOTE | 2025-01-20 11:46 | NUR ---
blood glucose 67. Patient is NPO. Called resident for hospitalist group Halima Ana Rosa and notify her of blood glucose results. Pending orders.
[2025-01-20] MEDS: DEXTROSE 50%-WATER 50 ML DISP.SYRIN IV PRN (11:56)
[2025-01-20] MEDS ORDERED: GLUCAGON 1MG KIT 1 MG ML IM PRN (12:00)
--- NOTE | 2025-01-20 14:00 | NUR ---
BLOOD GLUCOSE 88.
--- NOTE | 2025-01-20 15:29 | NUR ---
DCP: HOME Pt and Joseph Dela Cruz are from [facility], in the [place] for a family gathering. Couple staying with family when pt became ill. Prior to admission, Pt was independent, no DME or in home care services. Pt has no local PCP and will use [facility] for rx needs. DCP home with family Addendum: 01/20/25 at 1533 by DUSTIN PINEDO Amended: Links added.
--- NOTE | 2025-01-20 15:53 | NUR ---
CALLED TO GIVE REPORT, JACIEL JESSIE NOTIFY ME THAT MRS. RAMIREZ ARMANDO WAS ROUNDING WITH PHYSICIANS. GAVE MRS. HANSEN MY EXTENTION 1054, WILL WAIT FOR A CALL BACK.
[2025-01-20] MEDS ORDERED: PoTASSium chloRIDE 20MEQ ER 20 MEQ ERTAB PO PRN (16:30)
--- NOTE | 2025-01-20 16:49 | NUR ---
CALLED FOR REPORT, SPOKE TO MRS. RAMIREZ ARMANDO AND SHE RECEIVED REPORT. NOTIFY MRS. ARMIREZ THAT PATIENT DOES NOT HAVE ANY HOME MEDICATIONS.
--- NOTE | 2025-01-20 17:01 | NUR ---
BLOOD GLUCOSE 63 ( VIEW E-NOV) VITAL SIGNS BEFORE TRANSFERED TO ROOM 423 BLOOD PRESSURE 145/46 MMHG PULSE 74 P/MIN O2 SATURATION 98% RESPIRATIONS 24 P/MIN TEMPERATURE 98.1
--- NOTE | 2025-01-20 17:08 | NUR ---
NOTIFY MRS. RAMIREZ ABOUT LAST BLOOD GLUCOSE RESULTS. MRS. RAMIREZ WILL RE CHECK BLOOD GLUCOSE IN 30 MINUTES TO MONITOR IMPROVMENT.
[2025-01-20 17:25] VITALS: BP 149/74; PULSE 75; RESP 18; TEMP 98.7
[2025-01-20 17:51] VITALS: O2SAT 99
[2025-01-20] MEDS: metRONIDazole 500MG/100ML BAG IV SCH (17:51)
[2025-01-20 20:00] VITALS: BP 137/70; PULSE 71; RESP 17; TEMP 98.3
[2025-01-20 21:30] VITALS: O2SAT 98
[2025-01-21] VITALS: BP 151/71; PULSE 82; RESP 18; TEMP 98.2
[2025-01-21] MEDS: CEFTRIAXONE 2GM VIAL IVPB SCH (00:47)
[2025-01-21] MEDS: TEMAZepam 15 MG CAPSULE PO PRN (02:21)
[2025-01-21 04:00] VITALS: BP 161/63; PULSE 74; RESP 16; TEMP 98.4
[2025-01-21 06:20] LABS: BASOPHILS # (AUTO) 0.08 K/uL (0.00-0.20); BASOPHILS % (AUTO) 1.1 % (0.0-5.0); EOSINOPHILS # (AUTO) 0.18 K/uL (0.00-0.70); EOSINOPHILS % (AUTO) 2.4 % (0.0-8.0); HEMATOCRIT 31.7 % (36-48); IMMATURE GRANULOCYTE ABSOLUTE 0.03 K/uL (0-1); LYMPHOCYTES % (AUTO) 13.3 % (21.0-51.0); MEAN CORPUSCULAR HEMOGLOBIN 27.3 pg (27.0-33.0); MEAN CORPUSCULAR HGB CONC 32.5 g/dL (32.0-36.0); MEAN CORPUSCULAR VOLUME 84.1 fL (79-99); MONOCYTES # (AUTO) 0.8 K/uL (0.1-1.0); MONOCYTES % (AUTO) 10.7 % (3.0-13.0); NEUTROPHILS # (AUTO) 5.4 K/uL (1.8-7.7); NEUTROPHILS % (AUTO) 72.1 % (40.0-77.0); PLATELET COUNT (AUTO) 350 K/uL (130-400); RED BLOOD CELL COUNT(AUTO) 3.77 MIL/uL (4.00-5.50); WHITE BLOOD COUNT (AUTO) 7.5 K/uL (4.8-10.8)
[2025-01-21 06:37] LABS: ALBUMIN 2.8 g/dL (3.5-5.0); BILIRUBIN,TOTAL 0.3 mg/dL (0.2-1.0); CREATININE 0.5 mg/dL (0.5-1.0); MAGNESIUM 2.2 mg/dL (1.80-2.40); PHOSPHORUS 3.7 mg/dL (2.5-4.9); POTASSIUM 3.1 mmol/L (3.5-5.1)
[2025-01-21 07:47] LABS: ERYTHROCYTE SEDIMENTATION RATE 14 MM/HR (0-30)
[2025-01-21 08:00] VITALS: BP 137/57; PULSE 76; RESP 18; TEMP 98.3; O2SAT 96
[2025-01-21] MEDS: PoTASSium chloRIDE 20MEQ/100ML 100 ML IV PRN (10:09)
--- NOTE | 2025-01-21 10:45 | HMCIMG ---
Exam Type: ABD 1VW Clinical Information: enterocolitis vs sbo Comparison: None Findings: Abdomen demonstrates no evidence of pathologic calcification or soft tissue mass. There are no radiopacities to suggest calculous disease. The intestinal gas pattern is within normal limits without evidence of dilatation to suggest obstruction or adynamic ileus. The bony structures are unremarkable. IMPRESSION: Normal abdomen.
[2025-01-21 12:00] VITALS: BP 147/68; PULSE 85; RESP 20; TEMP 98.1
--- NOTE | 2025-01-21 12:33 | PN ---
[facility] PROGRESS NOTE Date of Service: January 21, 2025 Time of Service: 12:25 SUBJECTIVE: Patient is a 64 year old female with a past medical history of Scleroderma presented to the Emergency Department with complaints of abdominal pain for 1 week, along with nausea, vomiting, and constipation. The patient denies diarrhea, fever, shortness of breath, and chest pain. The patient reports her last bowel movement was [address] scan of the abdomen and pelvis showed fluid filled small bowel loops and colon suggestive of enterocolitis. The patient states that on FridayJanuary 16, she had episodes of diarrhea that lasted for 1 day. The following January 18, the patient reports experiencing episodes of abdominal bloating, and a loss of appetite. The patient states that the abdominal bloating and abdominal pain lasted throughout the entire night, and by Friday she took a whole bottle of magnesium citrate to help alleviate her pain. The patient states that by 7pm, she began have episodes of vomiting, and constipation. The patient states that she had a bowel obstruction 10 years ago. The patient does not report taking any medications at home. 01/20: Patient was seen and examined this morning at bedside. Patient continues on Ceftriaxone. Patient denies chest pain, shortness of breath, nausea, vomiting, fever, chills, diarrhea. The patient reports her abdominal pain is a 4/10 on the pain scale, and that the tenderness is worse in the left upper quadrant of her abdomen. The patient reports 3 episodes of diarrhea this morning, but denies passing gas. The patient is currently NPO except for ice chips. The patient is afebrile, saturating well on room air. Per nurse, the patients blood pressure has been high. Once pain medication is given, there is a significant drop to her blood pressure. We will continue to monitor the patient. The patient will be getting a abdominal x-ray in the AM. 01/21: Patient was seen and examined this morning at bedside. The patient denies chest pain, shortness of breath, nausea, vomiting, fever, chills. The patient reports having a soft, loose bowel movement this morning. The patient denies flatulence. The patient is clinically looking well. We have advanced her diet to clear liquid diet. A abdominal x-ray was done this morning, which showed a jasbir l abdomen and no signs of obstruction. We will continue to monitor the patient, and advance the diet as tolerated. REVIEW OF SYSTEMS 12-point ROS reviewed with the patient. All pertinent positives mentioned above. Otherwise negative, noncontributory, nonpertinent. PHYSICAL EXAM GENERAL APPEARANCE: The patient is awake, alert, and oriented, in no acute cardiopulmonary distress. NEUROLOGICAL: Cranial nerves II-XII grossly intact. Motor is 5/5 in bilateral upper and lower extremities proximal to distal. No sensory deficits. HEENT: Face is symmetric. Pupils are equal and reactive. Extraocular movements are intact. NECK: Supple. No JVD. No thyromegaly. No submental, submandibular, pre- /postauricular, occipital or supraclavicular lymphadenopathy. CHEST: Normal chest expansion. No Telemetry. LUNGS: Absence of any rales, rhonchi or any wheezing. CARDIOVASCULAR: Regular. S1 and S2 normal. No appreciable rubs, murmurs or gallops. ABDOMEN: Soft, nondistended. Tenderness in left upper quadrant. There is no rebound, voluntary guarding, or rigidity. Bowel sounds heard in all four quadrants. : Deferred. No [place]. EXTREMITIES: Non-edematous and not cyanotic. No clubbing. Good capillary refill. SKIN: No skin breakdown. Vital Signs (last 8hr) Date Time Temp Pulse Resp B/P (MAP) Pulse Ox O2 Delivery O2 Flow Rate FiO2 01/21/25 12:00 98.1 85 20 147/68 99 Room Air 01/21/25 08:00 98.2 76 18 137/57 99 Room Air LABS: Laboratory: Test 01/21/25 11:03 01/21/25 05:57 01/20/25 09:13 01/19/25 22:57 Range/Units Whole Blood Glucose 71 70-110 MG/DL White Blood Count 7.5 4.8-10.8 K/uL Red Blood Count 3.77 L 4.00-5.50 MIL/uL Hemoglobin 10.3 L 12.0-16.0 g/dL Hematocrit 31.7 L 36-48 % Mean Corpuscular Volume 84.1 79-99 fL Mean Corpuscular Hemoglobin 27.3 27.0-33.0 pg Mean Corpuscular Hemoglobin Concent 32.5 32.0-36.0 g/dL Red Cell Distribution Width 15.0 11.0-15.5 % Platelet Count 350 130-400 K/uL Mean Platelet Volume 10.2 7.5-10.5 fL Immature Granulocyte % (Auto) 0.4 0-1 % Neutrophils (%) (Auto) 72.1 40.0-77.0 % Lymphocytes (%) (Auto) 13.3 L 21.0-51.0 % Monocytes (%) (Auto) 10.7 3.0-13.0 % Eosinophils (%) (Auto) 2.4 0.0-8.0 % Basophils (%) (Auto) 1.1 0.0-5.0 % Neutrophils # (Auto) 5.4 1.8-7.7 K/uL Lymphocytes # (Auto) 1.0 1.0-4.8 K/uL Monocytes # (Auto) 0.8 0.1-1.0 K/uL Eosinophils # (Auto) 0.18 0.00-0.70 K/uL Basophils # (Auto) 0.08 0.00-0.20 K/uL Absolute Immature Granulocyte (auto 0.03 0-1 K/uL Nucleated Red Blood Cells 0.0 0.0-0.19 % Erythrocyte Sedimentation Rate 14 0-30 MM/HR Sodium Level 142 136-145 mmol/L Potassium Level 3.1 L 3.5-5.1 mmol/L Chloride Level 107 101-111 mmol/L Carbon Dioxide Level 27 21-32 mmol/L Blood Urea Nitrogen 8 7-18 mg/dL Creatinine 0.5 0.5-1.0 mg/dL Glomerular Filtration Rate Calc 103 >90 mL/min Random Glucose 89 70-105 mg/dL Lactic Acid Level 1.2 0.8-2.5 mmol/L Total Calcium 8.5 8.5-10.1 mg/dL Phosphorus Level 3.7 2.5-4.9 mg/dL Magnesium Level 2.20 1.80-2.40 mg/dL Total Bilirubin 0.3 # 0.2-1.0 mg/dL Aspartate Amino Transf (AST/SGOT) 19 10-37 U/L Alanine Aminotransferase (ALT/SGPT) 22 # 12-78 U/L Alkaline Phosphatase 113 50-136 U/L C-Reactive Protein, Quantitative 7.30 H 0.5-3.0 mg/L Total Protein 6.0 6.0-8.3 g/dL Albumin 2.8 L 3.5-5.0 g/dL Hemoglobin A1c 6.1 H 4.0-6.0 % Estimated Average Glucose (eAG) 128 H 70-126 mg/dL Thyroid Stimulating Hormone (TSH) 1.82 0.36-3.74 uIU/mL Urine Color COLORLESS YELLOW Urine Appearance CLEAR CLEAR Urine pH 6.5 5.0-8.0 Urine Specific [place] 1.005 1.001-1.031 Urine Protein NEGATIVE NEGATIVE mg/dL Urine Glucose (UA) NEGATIVE NEGATIVE mg/dL Urine Ketones NEGATIVE NEGATIVE mg/dL Urine Occult Blood NEGATIVE NEGATIVE Urine Nitrate NEGATIVE NEGATIVE Urine Bilirubin NEGATIVE NEGATIVE mg/dL Urine Urobilinogen 0.2 0.2-1.0 mg/dL Urine Leukocyte Esterase 75 H NEGATIVE David/uL Urine RBC 0-1 0-1 /HPF Urine WBC 6-10 H 0-1 /HPF Urine Bacteria RARE None Seen /HPF Urine Opiates Screen NEGATIVE NEGATIVE Urine Barbiturates Screen NEGATIVE NEGATIVE Urine Phencyclidine Screen NEGATIVE NEGATIVE Urine Amphetamines Screen NEGATIVE NEGATIVE Urine Benzodiazepines Screen NEGATIVE NEGATIVE Urine Cocaine Screen NEGATIVE NEGATIVE Urine Marijuana (THC) Screen NEGATIVE NEGATIVE Test 01/19/25 22:15 Range/Units Direct Bilirubin 0.1 0.0-0.3 mg/dL Lipase 33 16-77 U/L Current Medications Medications (Trade) Dose Ordered Sig/Sarah Route PRN Reason Start Time Stop Time Status Last Admin Dose Admin Acetaminophen (TYLenol 325MG TAB) 650 mg Q6H PRN PO FEVER/MILD PAIN LEVEL 1-3 01/20/25 03:00 02/19/25 02:59 Acetaminophen (TYLenol 650MG SUPPOSITORY) 650 mg Q6H PRN RC FEVER / MILD PAIN 1-3 IF NPO 01/20/25 03:00 02/19/25 02:59 Ceftriaxone Sodium (Rocephin 2gm Inj) 2 gm Q24H IVPB 01/21/25 01:00 01/31/25 00:59 01/21/25 00:47 2 GM Dextrose (D50w) 50 ml AD PRN IV HYPOGLYCEMIA PROTOCOL 01/20/25 12:00 02/19/25 11:59 01/20/25 16:56 50 ML Docusate Sodium (COLace 100MG CAP) 100 mg BID PRN PO c 01/20/25 03:00 02/19/25 02:59 Enoxaparin Sodium (Lovenox) 30 mg DAILY SQ 01/20/25 09:00 02/19/25 08:59 01/21/25 09:41 30 MG Famotidine (Pepcid 20mg Tab) 20 mg BID PO 01/20/25 09:00 02/19/25 08:59 01/21/25 09:42 20 MG Ferrous Sulfate (Ferrous Sulfate) 325 mg DAILY PO 01/20/25 09:00 02/19/25 08:59 Glucagon (Glucagon 1mg Kit) 1 mg AD PRN IM HYPOGLYCEMIA PROTOCOL 01/20/25 12:00 02/19/25 11:59 Hydralazine HCl (APRESOLine 20MG INJ) 10 mg Q6H PRN IV SBP GREATER THAN 160 01/20/25 03:00 02/19/25 02:59 Insulin Human Regular (humuLIN R 100 UNIT/ML 3ML) INSULIN SLIDING SCAL... ACHS SQ 01/20/25 07:30 02/19/25 07:29 Ketorolac Tromethamine (toRADol) 15 mg Q6H PRN IV MODERATE PAIN (4-6) 01/20/25 06:00 01/25/25 05:59 01/21/25 00:46 15 MG Lactated Ringer's 1,000 ml @ 75 mls/hr [id number] IV 01/20/25 03:00 02/19/25 02:59 01/21/25 09:43 75 MLS/HR Lactulose (Constulose 20gm/ 30ml Udcup) 20 gm Q6H PRN PO CONSTIPATION 01/20/25 03:00 02/19/25 02:59 Metronidazole/ Sodium Chloride (flaGYL) 500 mg Q8H IV 01/20/25 17:00 01/30/25 16:59 01/21/25 09:41 500 MG Ondansetron HCl (zoFRAN 4MG INJ) 4 mg Q6H PRN IVP NAUSEA/VOMITING 01/20/25 03:00 02/19/25 02:59 Potassium Chloride 100 ml @ 100 mls/hr AD PRN IV POTASSIUM PROTOCOL 01/20/25 16:30 02/19/25 16:29 01/21/25 10:09 100 MLS/HR Potassium Chloride (K-Dur/Klor-Con 20meq) 20 meq AD PRN PO POTASSIUM PROTOCOL 01/20/25 16:30 02/19/25 16:29 Potassium Chloride (KCl 10% Elixir 20meq/15ml) 20 meq AD PRN PO POTASSIUM PROTOCOL 01/20/25 16:30 02/19/25 16:29 Temazepam (restORIL 15 MG CAP) 15 mg HS PRN PO INSOMNIA/SLEEP 01/20/25 03:00 02/19/25 02:59 01/21/25 02:21 15 MG DIAGNOSTICS / RADIOLOGY: [facility] [address] [place] [address] IMAGING REPORT Signed PATIENT: DMITRI KELLY MR#: [id number] : 1960 SEX: F AGE: 64 LOCATION: 4DH ORDER 2300 STATUS: ADM IN REPORT#: [id number] SERVICE 0600 REASON: enterocolitis vs sbo ORDERING PHYSICIAN: SHON GONZALEZ MD PROCEDURE: ABD 1VW - ABD 1VW Exam Type: ABD 1VW Clinical Information: enterocolitis vs sbo Comparison: None Findings: Abdomen demonstrates no evidence of pathologic calcification or soft tissue mass. There are no radiopacities to suggest calculous disease. The intestinal gas pattern is within normal limits without evidence of dilatation to suggest obstruction or adynamic ileus. The bony structures are unremarkable. IMPRESSION: Normal abdomen. DICTATED BY: HARDIK KAUFMAN MD DATE: 01/21/25 104 ELECTRONICALLY SIGNED BY: HARDIK KAUFMAN MD DATE: 01/21/25 104 ASSESSMENT: Enterocolitis Scleroderma PLAN: Enterocolitis -Advanced diet to Clear liquid. Will continue to advance diet as tolerated. -IV fluids to maintain hydration and electrolyte balance. -Antibiotics: Ceftriaxone and Metronidazole. -Stool studies pending -Monitor electrolytes, and replace as needed. -Monitor for signs of obstruction: persistent vomiting, severe distention, absent bowel sounds. -Surgery consult if concern for worsening symptoms. -Hypoglycemia protocol -Keep hgb >7, transfuse if below 7. -Abdominal x-ray in AM. Results showed normal bowel. SHON GONZALEZ MD January 21, 2025 12:33
[2025-01-21 16:00] VITALS: BP 142/63; PULSE 72; RESP 16; TEMP 98.3
[2025-01-21] MEDS: PoTASSium chl 10% ELIXIR 20MEQ 20 MEQ/15 ML UDCUP PO PRN (17:28)
[2025-01-21] MEDS ORDERED: PoTASSium chloRIDE 20MEQ ER 20 MEQ ERTAB PO PRN (17:30)
[2025-01-21 20:00] VITALS: BP 157/65; PULSE 76; RESP 18; TEMP 98.3; O2SAT 99
[2025-01-22] VITALS (9 sets, daily range): BP systolic 121–172; BP diastolic 54–83; PULSE 68–79; RESP 16–18; TEMP 97.6–98.3; O2SAT 96–100
[2025-01-22] MEDS: morPHINE 2 MG SYG IVP ONE (02:59)
--- NOTE | 2025-01-22 03:00 | NUR ---
PT COMPLAINING OF BACK AND FLANK PAIN STATES A [employer] HOMER Ribera MADE AWARE 1 TIME DOSE OF MORPHINE 2MG IV GIVEN PER ORDERS.
--- NOTE | 2025-01-22 04:00 | NUR ---
PAIN RESOLVED PT RESTING COMFORTABLY NO PAIN.
[2025-01-22 05:40] LABS: BASOPHILS # (AUTO) 0.07 K/uL (0.00-0.20); BASOPHILS % (AUTO) 1.1 % (0.0-5.0); EOSINOPHILS # (AUTO) 0.26 K/uL (0.00-0.70); HEMATOCRIT 32.6 % (36-48); IMMATURE GRANULOCYTE ABSOLUTE 0.02 K/uL (0-1); LYMPHOCYTES # (AUTO) 1.1 K/uL (1.0-4.8); LYMPHOCYTES % (AUTO) 17.1 % (21.0-51.0); MEAN CORPUSCULAR HEMOGLOBIN 27.6 pg (27.0-33.0); MEAN CORPUSCULAR HGB CONC 32.8 g/dL (32.0-36.0); MONOCYTES # (AUTO) 0.8 K/uL (0.1-1.0); MONOCYTES % (AUTO) 12.4 % (3.0-13.0); NEUTROPHILS # (AUTO) 4.3 K/uL (1.8-7.7); NEUTROPHILS % (AUTO) 65.1 % (40.0-77.0); PLATELET COUNT (AUTO) 345 K/uL (130-400); RED BLOOD CELL COUNT(AUTO) 3.88 MIL/uL (4.00-5.50); RED CELL DISTRIBUTION WIDTH 15.1 % (11.0-15.5); WHITE BLOOD COUNT (AUTO) 6.6 K/uL (4.8-10.8)
[2025-01-22 05:55] LABS: ALBUMIN 2.9 g/dL (3.5-5.0); BILIRUBIN,TOTAL 0.4 mg/dL (0.2-1.0); CREATININE 0.6 mg/dL (0.5-1.0); POTASSIUM 3.5 mmol/L (3.5-5.1)
--- NOTE | 2025-01-22 14:00 | PN ---
[facility] PROGRESS NOTE Date of Service: January 22, 2025 Time of Service: 13:59 SUBJECTIVE: Patient is a 64 year old female with a past medical history of Scleroderma presented to the Emergency Department with complaints of abdominal pain for 1 week, along with nausea, vomiting, and constipation. The patient denies diarrhea, fever, shortness of breath, and chest pain. The patient reports her last bowel movement was [address] scan of the abdomen and pelvis showed fluid filled small bowel loops and colon suggestive of enterocolitis. The patient states that on FridayJanuary 16, she had episodes of diarrhea that lasted for 1 day. The following January 18, the patient reports experiencing episodes of abdominal bloating, and a loss of appetite. The patient states that the abdominal bloating and abdominal pain lasted throughout the entire night, and by Friday she took a whole bottle of magnesium citrate to help alleviate her pain. The patient states that by 7pm, she began have episodes of vomiting, and constipation. The patient states that she had a bowel obstruction 10 years ago. The patient does not report taking any medications at home. 01/20: Patient was seen and examined this morning at bedside. Patient continues on Ceftriaxone. Patient denies chest pain, shortness of breath, nausea, vomiting, fever, chills, diarrhea. The patient reports her abdominal pain is a 4/10 on the pain scale, and that the tenderness is worse in the left upper quadrant of her abdomen. The patient reports 3 episodes of diarrhea this morning, but denies passing gas. The patient is currently NPO except for ice chips. The patient is afebrile, saturating well on room air. Per nurse, the patients blood pressure has been high. Once pain medication is given, there is a significant drop to her blood pressure. We will continue to monitor the patient. The patient will be getting a abdominal x-ray in the AM. 01/21: Patient was seen and examined this morning at bedside. The patient denies chest pain, shortness of breath, nausea, vomiting, fever, chills. The patient reports having a soft, loose bowel movement this morning. The patient denies flatulence. The patient is clinically looking well. We have advanced her diet to clear liquid diet. A abdominal x-ray was done this morning, which showed a norm al abdomen and no signs of obstruction. We will continue to monitor the patient, and advance the diet as tolerated. 01/22/25 patient was seen and examined. Case discussed with RN and family by the bedside. She reports significant pain in the left flank that comes and goes and is requiring morphine. She was still not passing gas. We will get renal ultrasound ordered. We will also have GI and surgery evaluate the patient REVIEW OF SYSTEMS 12-point ROS reviewed with the patient. All pertinent positives mentioned above. Otherwise negative, noncontributory, nonpertinent. PHYSICAL EXAM GENERAL APPEARANCE: The patient is awake, alert, and oriented, in no acute cardiopulmonary distress. NEUROLOGICAL: Cranial nerves II-XII grossly intact. Motor is 5/5 in bilateral upper and lower extremities proximal to distal. No sensory deficits. HEENT: Face is symmetric. Pupils are equal and reactive. Extraocular movements are intact. NECK: Supple. No JVD. No thyromegaly. No submental, submandibular, pre- /postauricular, occipital or supraclavicular lymphadenopathy. CHEST: Normal chest expansion. No Telemetry. LUNGS: Absence of any rales, rhonchi or any wheezing. CARDIOVASCULAR: Regular. S1 and S2 normal. No appreciable rubs, murmurs or gallops. ABDOMEN: Soft, nondistended. Tenderness in left upper quadrant. There is no rebound, voluntary guarding, or rigidity. Bowel sounds heard in all four quadrants. : Deferred. No [place]. EXTREMITIES: Non-edematous and not cyanotic. No clubbing. Good capillary r efill. SKIN: No skin breakdown. Vital Signs (last 8hr) Date Time Temp Pulse Resp B/P (MAP) Pulse Ox O2 Delivery O2 Flow Rate FiO2 01/22/25 11:43 98.1 78 18 168/62 100 Room Air 01/22/25 08:00 98 Room Air* 0 21 01/22/25 08:00 96 Room Air* 0 21 01/22/25 07:38 97.7 71 17 134/59 100 Room Air LABS: Laboratory: Test 01/22/25 11:03 01/22/25 05:22 01/21/25 05:57 Range/Units Whole Blood Glucose 89 70-110 MG/DL White Blood Count 6.6 4.8-10.8 K/uL Red Blood Count 3.88 L 4.00-5.50 MIL/uL Hemoglobin 10.7 L 12.0-16.0 g/dL Hematocrit 32.6 L 36-48 % Mean Corpuscular Volume 84.0 79-99 fL Mean Corpuscular Hemoglobin 27.6 27.0-33.0 pg Mean Corpuscular Hemoglobin Concent 32.8 32.0-36.0 g/dL Red Cell Distribution Width 15.1 11.0-15.5 % Platelet Count 345 130-400 K/uL Mean Platelet Volume 10.1 7.5-10.5 fL Immature Granulocyte % (Auto) 0.3 0-1 % Neutrophils (%) (Auto) 65.1 40.0-77.0 % Lymphocytes (%) (Auto) 17.1 L 21.0-51.0 % Monocytes (%) (Auto) 12.4 3.0-13.0 % Eosinophils (%) (Auto) 4.0 0.0-8.0 % Basophils (%) (Auto) 1.1 0.0-5.0 % Neutrophils # (Auto) 4.3 1.8-7.7 K/uL Lymphocytes # (Auto) 1.1 1.0-4.8 K/uL Monocytes # (Auto) 0.8 0.1-1.0 K/uL Eosinophils # (Auto) 0.26 0.00-0.70 K/uL Basophils # (Auto) 0.07 0.00-0.20 K/uL Absolute Immature Granulocyte (auto 0.02 0-1 K/uL Nucleated Red Blood Cells 0.0 0.0-0.19 % Sodium Level 141 136-145 mmol/L Potassium Level 3.5 3.5-5.1 mmol/L Chloride Level 106 101-111 mmol/L Carbon Dioxide Level 29 21-32 mmol/L Blood Urea Nitrogen 8 7-18 mg/dL Creatinine 0.6 0.5-1.0 mg/dL Glomerular Filtration Rate Calc 99 >90 mL/min Random Glucose 91 70-105 mg/dL Total Calcium 8.6 8.5-10.1 mg/dL Total Bilirubin 0.4 # 0.2-1.0 mg/dL Aspartate Amino Transf (AST/SGOT) 19 10-37 U/L Alanine Aminotransferase (ALT/SGPT) 20 12-78 U/L Alkaline Phosphatase 116 50-136 U/L Total Protein 6.0 6.0-8.3 g/dL Albumin 2.9 L 3.5-5.0 g/dL Erythrocyte Sedimentation Rate 14 0-30 MM/HR Lactic Acid Level 1.2 0.8-2.5 mmol/L Phosphorus Level 3.7 2.5-4.9 mg/dL Magnesium Level 2.20 1.80-2.40 mg/dL C-Reactive Protein, Quantitative 7.30 H 0.5-3.0 mg/L Current Medications Medications (Trade) Dose Ordered Sig/Sarah Route PRN Reason Start Time Stop Time Status Last Admin Dose Admin Acetaminophen (TYLenol 325MG TAB) 650 mg Q6H PRN PO FEVER/MILD PAIN LEVEL 1-3 01/20/25 03:00 02/19/25 02:59 Acetaminophen (TYLenol 650MG SUPPOSITORY) 650 mg Q6H PRN RC FEVER / MILD PAIN 1-3 IF NPO 01/20/25 03:00 02/19/25 02:59 Ceftriaxone Sodium (Rocephin 2gm Inj) 2 gm Q24H IVPB 01/21/25 01:00 01/31/25 00:59 01/22/25 02:22 2 GM Dextrose (D50w) 50 ml AD PRN IV HYPOGLYCEMIA PROTOCOL 01/20/25 12:00 02/19/25 11:59 01/20/25 16:56 50 ML Docusate Sodium (COLace 100MG CAP) 100 mg BID PRN PO c 01/20/25 03:00 02/19/25 02:59 Enoxaparin Sodium (Lovenox) 30 mg DAILY SQ 01/20/25 09:00 02/19/25 08:59 01/22/25 08:32 30 MG Famotidine (Pepcid 20mg Tab) 20 mg BID PO 01/20/25 09:00 02/19/25 08:59 01/22/25 08:32 20 MG Ferrous Sulfate (Ferrous Sulfate) 325 mg DAILY PO 01/20/25 09:00 02/19/25 08:59 Glucagon (Glucagon 1mg Kit) 1 mg AD PRN IM HYPOGLYCEMIA PROTOCOL 01/20/25 12:00 02/19/25 11:59 Hydralazine HCl (APRESOLine 20MG INJ) 10 mg Q6H PRN IV SBP GREATER THAN 160 01/20/25 03:00 02/19/25 02:59 Insulin Human Regular (humuLIN R 100 UNIT/ML 3ML) INSULIN SLIDING SCAL... ACHS SQ 01/20/25 07:30 02/19/25 07:29 Ketorolac Tromethamine (toRADol) 15 mg Q6H PRN IV MODERATE PAIN (4-6) 01/20/25 06:00 01/25/25 05:59 01/22/25 00:52 15 MG Lactated Ringer's 1,000 ml @ 75 mls/hr [id number] IV 01/20/25 03:00 02/19/25 02:59 01/22/25 08:33 75 MLS/HR Lactulose (Constulose 20gm/ 30ml Udcup) 20 gm Q6H PRN PO CONSTIPATION 01/20/25 03:00 02/19/25 02:59 Metronidazole/ Sodium Chloride (flaGYL) 500 mg Q8H IV 01/20/25 17:00 01/30/25 16:59 01/22/25 08:32 500 MG Ondansetron HCl (zoFRAN 4MG INJ) 4 mg Q6H PRN IVP NAUSEA/VOMITING 01/20/25 03:00 02/19/25 02:59 Potassium Chloride 100 ml @ 100 mls/hr AD PRN IV POTASSIUM PROTOCOL 01/20/25 16:30 02/19/25 16:29 01/21/25 10:09 100 MLS/HR Potassium Chloride (K-Dur/Klor-Con 20meq) 20 meq AD PRN PO POTASSIUM PROTOCOL 01/20/25 16:30 02/19/25 16:29 Potassium Chloride (K-Dur/Klor-Con 20meq) 20 meq AD PRN PO POTASSIUM PROTOCOL 01/21/25 17:30 02/20/25 17:29 Potassium Chloride (KCl 10% Elixir 20meq/15ml) 20 meq AD PRN PO POTASSIUM PROTOCOL 01/20/25 16:30 02/19/25 16:29 01/22/25 08:32 20 MEQ Potassium Chloride (KCl 10% Elixir 20meq/15ml) 20 meq AD PRN PO POTASSIUM PROTOCOL 01/21/25 17:30 02/20/25 17:29 Temazepam (restORIL 15 MG CAP) 15 mg HS PRN PO INSOMNIA/SLEEP 01/20/25 03:00 02/19/25 02:59 01/21/25 23:26 15 MG DIAGNOSTICS / RADIOLOGY: [ ] ASSESSMENT: Enterocolitis Scleroderma PLAN: Enterocolitis -Advanced diet to Clear liquid. Will continue to advance diet as tolerated. -IV fluids to maintain hydration and electrolyte balance. -Antibiotics: Ceftriaxone and Metronidazole. -Stool studies pending -Monitor electrolytes, and replace as needed. -Monitor for signs of obstruction: persistent vomiting, severe distention, absent bowel sounds. -Surgery consult if concern for worsening symptoms. -Hypoglycemia protocol -Keep hgb >7, transfuse if below 7. -Abdominal x-ray in AM. Results showed normal bowel. RITA EDMONDSON MD January 22, 2025 14:00
--- NOTE | 2025-01-22 14:06 | NUR ---
DR YOON REVIEWED CT SCANS , PER MD NO SURGICAL INTERVENTION NEEDED . INFORMED PRIMARY MD DR Brenda Cadet
--- NOTE | 2025-01-22 17:31 | NUR ---
[employer] CALLED ANSWERING SERVICE FRO GI CONSULT WITH DR SKINNER
--- NOTE | 2025-01-22 17:52 | HMCIMG ---
Exam Type: US RENAL SONOGRAM Clinical Information: LOWER BACK PAIN Comparison: None Findings: Examination shows normal renal size and echogenicity bilaterally. Preserved cortical thickness and corticomedullary junction region is seen. No hydronephrosis or calculi are seen. No renal masses are seen. There is no evidence of perinephric fluid on either side. No evidence of significant ureteral dilatation is seen. The urinary bladder is normal. No bladder masses, stones, or wall thickening is seen. IMPRESSION: Normal renal anatomy bilaterally.
[2025-01-22] MEDS: LIDOCAINE 5% TOPICAL PATCH TP ONE (18:48)
[2025-01-22] MEDS: hydrALAZine 20MG/ML VIAL IV PRN (21:02)
[2025-01-23] VITALS (8 sets, daily range): BP systolic 95–158; BP diastolic 53–89; PULSE 72–93; RESP 18–20; TEMP 97.9–98.7; O2SAT 99–100
[2025-01-23 08:47] LABS: BASOPHILS # (AUTO) 0.08 K/uL (0.00-0.20); BASOPHILS % (AUTO) 1.1 % (0.0-5.0); EOSINOPHILS # (AUTO) 0.25 K/uL (0.00-0.70); EOSINOPHILS % (AUTO) 3.4 % (0.0-8.0); HEMATOCRIT 37.9 % (36-48); IMMATURE GRANULOCYTE ABSOLUTE 0.02 K/uL (0-1); LYMPHOCYTES # (AUTO) 1.2 K/uL (1.0-4.8); LYMPHOCYTES % (AUTO) 16.7 % (21.0-51.0); MEAN CORPUSCULAR HEMOGLOBIN 27.1 pg (27.0-33.0); MEAN CORPUSCULAR HGB CONC 32.2 g/dL (32.0-36.0); MONOCYTES # (AUTO) 0.7 K/uL (0.1-1.0); NEUTROPHILS % (AUTO) 68.5 % (40.0-77.0); PLATELET COUNT (AUTO) 395 K/uL (130-400); RED BLOOD CELL COUNT(AUTO) 4.51 MIL/uL (4.00-5.50); RED CELL DISTRIBUTION WIDTH 15.1 % (11.0-15.5); WHITE BLOOD COUNT (AUTO) 7.3 K/uL (4.8-10.8)
[2025-01-23 08:59] LABS: CREATININE 0.5 mg/dL (0.5-1.0); POTASSIUM 3.7 mmol/L (3.5-5.1)
[2025-01-23 09:01] LABS: ALBUMIN 3.4 g/dL (3.5-5.0); BILIRUBIN,TOTAL 0.4 mg/dL (0.2-1.0); TOTAL PROTEIN, SERUM 6.7 g/dL (6.0-8.3)
[2025-01-23 09:50] LABS: ERYTHROCYTE SEDIMENTATION RATE 19 MM/HR (0-30)
--- NOTE | 2025-01-23 11:28 | PN ---
[facility] PROGRESS NOTE Date of Service: January 23, 2025 Time of Service: 11:23 SUBJECTIVE: Patient is a 64 year old female with a past medical history of Scleroderma presented to the Emergency Department with complaints of abdominal pain for 1 week, along with nausea, vomiting, and constipation. The patient denies diarrhea, fever, shortness of breath, and chest pain. The patient reports her last bowel movement was [address] scan of the abdomen and pelvis showed fluid filled small bowel loops and colon suggestive of enterocolitis. The patient states that on FridayJanuary 16, she had episodes of diarrhea that lasted for 1 day. The following January 18, the patient reports experiencing episodes of abdominal bloating, and a loss of appetite. The patient states that the abdominal bloating and abdominal pain lasted throughout the entire night, and by Friday she took a whole bottle of magnesium citrate to help alleviate her pain. The patient states that by 7pm, she began have episodes of vomiting, and constipation. The patient states that she had a bowel obstruction 10 years ago. The patient does not report taking any medications at home. 01/20: Patient was seen and examined this morning at bedside. Patient continues on Ceftriaxone. Patient denies chest pain, shortness of breath, nausea, vomiting, fever, chills, diarrhea. The patient reports her abdominal pain is a 4/10 on the pain scale, and that the tenderness is worse in the left upper quadrant of her abdomen. The patient reports 3 episodes of diarrhea this morning, but denies passing gas. The patient is currently NPO except for ice chips. The patient is afebrile, saturating well on room air. Per nurse, the patients blood pressure has been high. Once pain medication is given, there is a significant drop to her blood pressure. We will continue to monitor the patient. The patient will be getting a abdominal x-ray in the AM. 01/21: Patient was seen and examined this morning at bedside. The patient denies chest pain, shortness of breath, nausea, vomiting, fever, chills. The patient reports having a soft, loose bowel movement this morning. The patient denies flatulence. The patient is clinically looking well. We have advanced her diet to clear liquid diet. A abdominal x-ray was done this morning, which showed a norm al abdomen and no signs of obstruction. We will continue to monitor the patient, and advance the diet as tolerated. 01/22/25 patient was seen and examined. Case discussed with RN and family by the bedside. She reports significant pain in the left flank that comes and goes and is requiring morphine. She was still not passing gas. We will get renal ultrasound ordered. We will also have GI and surgery evaluate the patient 01/23: Patient was seen and examined this morning at bedside. The patient states she is feeling much better. Patient states she still has dull pain in her left upper quadrant. The patient rates it a 4/10 on the pain scale. The patient states she is passing stool, and believes she has passed gas. The patient denies nausea, vomiting, fever, chills, diarrhea, constipation. Renal ultrasound came back negative. Abdominal x-ray is negative for obstruction. Her abdominal pain is likely due to pseudo-obstruction due to dysmotility from her history of Scleroderma. GI has been consulted, we will appreciate their recommendations. Surgery was consulted, and denies any surgical intervention. We will obtain a gastric emptying study. REVIEW OF SYSTEMS 12-point ROS reviewed with the patient. All pertinent positives mentioned ab ove. Otherwise negative, noncontributory, nonpertinent. PHYSICAL EXAM GENERAL APPEARANCE: The patient is awake, alert, and oriented, in no acute cardiopulmonary distress. NEUROLOGICAL: Cranial nerves II-XII grossly intact. Motor is 5/5 in bilateral upper and lower extremities proximal to distal. No sensory deficits. HEENT: Face is symmetric. Pupils are equal and reactive. Extraocular movements are intact. NECK: Supple. No JVD. No thyromegaly. No submental, submandibular, pre- /postauricular, occipital or supraclavicular lymphadenopathy. CHEST: Normal chest expansion. No Telemetry. LUNGS: Absence of any rales, rhonchi or any wheezing. CARDIOVASCULAR: Regular. S1 and S2 normal. No appreciable rubs, murmurs or gallops. ABDOMEN: Soft, nondistended. Tenderness in left upper quadrant. There is no rebound, voluntary guarding, or rigidity. Bowel sounds heard in all four quadrants. : Deferred. No [place]. EXTREMITIES: Non-edematous and not cyanotic. No clubbing. Good capillary refill. SKIN: No skin breakdown. Vital Signs (last 8hr) Date Time Temp Pulse Resp B/P (MAP) Pulse Ox O2 Delivery O2 Flow Rate FiO2 01/23/25 09:16 99 Room Air* 0 21 01/23/25 08:06 98.8 77 19 158/76 100 Room Air 01/23/25 04:00 97.9 73 18 135/58 99 Room Air LABS: Laboratory: Test 01/23/25 11:16 01/23/25 08:17 Range/Units Whole Blood Glucose 87 70-110 MG/DL White Blood Count 7.3 4.8-10.8 K/uL Red Blood Count 4.51 4.00-5.50 MIL/uL Hemoglobin 12.2 12.0-16.0 g/dL Hematocrit 37.9 36-48 % Mean Corpuscular Volume 84.0 79-99 fL Mean Corpuscular Hemoglobin 27.1 27.0-33.0 pg Mean Corpuscular Hemoglobin Concent 32.2 32.0-36.0 g/dL Red Cell Distribution Width 15.1 11.0-15.5 % Platelet Count 395 130-400 K/uL Mean Platelet Volume 10.1 7.5-10.5 fL Immature Granulocyte % (Auto) 0.3 0-1 % Neutrophils (%) (Auto) 68.5 40.0-77.0 % Lymphocytes (%) (Auto) 16.7 L 21.0-51.0 % Monocytes (%) (Auto) 10.0 3.0-13.0 % Eosinophils (%) (Auto) 3.4 0.0-8.0 % Basophils (%) (Auto) 1.1 0.0-5.0 % Neutrophils # (Auto) 5.0 1.8-7.7 K/uL Lymphocytes # (Auto) 1.2 1.0-4.8 K/uL Monocytes # (Auto) 0.7 0.1-1.0 K/uL Eosinophils # (Auto) 0.25 0.00-0.70 K/uL Basophils # (Auto) 0.08 0.00-0.20 K/uL Absolute Immature Granulocyte (auto 0.02 0-1 K/uL Nucleated Red Blood Cells 0.0 0.0-0.19 % Erythrocyte Sedimentation Rate 19 0-30 MM/HR Sodium Level 141 136-145 mmol/L Potassium Level 3.7 3.5-5.1 mmol/L Chloride Level 105 101-111 mmol/L Carbon Dioxide Level 27 21-32 mmol/L Blood Urea Nitrogen 7 7-18 mg/dL Creatinine 0.5 0.5-1.0 mg/dL Glomerular Filtration Rate Calc 103 >90 mL/min Random Glucose 95 70-105 mg/dL Lactic Acid Level 1.5 0.8-2.5 mmol/L Total Calcium 9.9 8.5-10.1 mg/dL Total Bilirubin 0.4 0.2-1.0 mg/dL Aspartate Amino Transf (AST/SGOT) 26 10-37 U/L Alanine Aminotransferase (ALT/SGPT) 21 12-78 U/L Alkaline Phosphatase 128 50-136 U/L C-Reactive Protein, Quantitative 15.60 H 0.5-3.0 mg/L Total Protein 6.7 6.0-8.3 g/dL Albumin 3.4 L 3.5-5.0 g/dL Current Medications Medications (Trade) Dose Ordered Sig/Sarah Route PRN Reason Start Time Stop Time Status Last Admin Dose Admin Acetaminophen (TYLenol 325MG TAB) 650 mg Q6H PRN PO FEVER/MILD PAIN LEVEL 1-3 01/20/25 03:00 02/19/25 02:59 Acetaminophen (TYLenol 650MG SUPPOSITORY) 650 mg Q6H PRN RC FEVER / MILD PAIN 1-3 IF NPO 01/20/25 03:00 02/19/25 02:59 Ceftriaxone Sodium (Rocephin 2gm Inj) 2 gm Q24H IVPB 01/21/25 01:00 01/31/25 00:59 01/23/25 00:29 2 GM Dextrose (D50w) 50 ml AD PRN IV HYPOGLYCEMIA PROTOCOL 01/20/25 12:00 02/19/25 11:59 01/20/25 16:56 50 ML Docusate Sodium (COLace 100MG CAP) 100 mg BID PRN PO c 01/20/25 03:00 02/19/25 02:59 Enoxaparin Sodium (Lovenox) 30 mg DAILY SQ 01/20/25 09:00 02/19/25 08:59 01/23/25 09:11 30 MG Famotidine (Pepcid 20mg Tab) 20 mg BID PO 01/20/25 09:00 02/19/25 08:59 01/23/25 09:11 20 MG Ferrous Sulfate (Ferrous Sulfate) 325 mg DAILY PO 01/20/25 09:00 02/19/25 08:59 Glucagon (Glucagon 1mg Kit) 1 mg AD PRN IM HYPOGLYCEMIA PROTOCOL 01/20/25 12:00 02/19/25 11:59 Hydralazine HCl (APRESOLine 20MG INJ) 10 mg Q6H PRN IV SBP GREATER THAN 160 01/20/25 03:00 02/19/25 02:59 01/22/25 21:02 10 MG Insulin Human Regular (humuLIN R 100 UNIT/ML 3ML) INSULIN SLIDING SCAL... ACHS SQ 01/20/25 07:30 02/19/25 07:29 Ketorolac Tromethamine (toRADol) 15 mg Q6H PRN IV MODERATE PAIN (4-6) 01/20/25 06:00 01/25/25 05:59 01/23/25 09:16 15 MG Lactated Ringer's 1,000 ml @ 75 mls/hr [id number] IV 01/20/25 03:00 02/19/25 02:59 01/22/25 20:45 75 MLS/HR Lactulose (Constulose 20gm/ 30ml Udcup) 20 gm Q6H PRN PO CONSTIPATION 01/20/25 03:00 02/19/25 02:59 Metronidazole/ Sodium Chloride (flaGYL) 500 mg Q8H IV 01/20/25 17:00 01/30/25 16:59 01/23/25 09:11 500 MG Ondansetron HCl (zoFRAN 4MG INJ) 4 mg Q6H PRN IVP NAUSEA/VOMITING 01/20/25 03:00 02/19/25 02:59 Potassium Chloride 100 ml @ 100 mls/hr AD PRN IV POTASSIUM PROTOCOL 01/20/25 16:30 02/19/25 16:29 01/21/25 10:09 100 MLS/HR Potassium Chloride (K-Dur/Klor-Con 20meq) 20 meq AD PRN PO POTASSIUM PROTOCOL 01/20/25 16:30 02/19/25 16:29 Potassium Chloride (K-Dur/Klor-Con 20meq) 20 meq AD PRN PO POTASSIUM PROTOCOL 01/21/25 17:30 02/20/25 17:29 Potassium Chloride (KCl 10% Elixir 20meq/15ml) 20 meq AD PRN PO POTASSIUM PROTOCOL 01/20/25 16:30 02/19/25 16:29 01/22/25 18:47 20 MEQ Potassium Chloride (KCl 10% Elixir 20meq/15ml) 20 meq AD PRN PO POTASSIUM PROTOCOL 01/21/25 17:30 02/20/25 17:29 Temazepam (restORIL 15 MG CAP) 15 mg HS PRN PO INSOMNIA/SLEEP 01/20/25 03:00 02/19/25 02:59 01/21/25 23:26 15 MG DIAGNOSTICS / RADIOLOGY: [facility] [id number] [place] [id number] IMAGING REPORT Signed PATIENT: DMITRI KELLY MR#: [id number] : 1960 SEX: F AGE: 64 LOCATION: 4DH ORDER 48 STATUS: ADM IN REPORT#: [id number] SERVICE 124 REASON: LOWER BACK PAIN ORDERING PHYSICIAN: RITA EDMONDSON MD PROCEDURE: RENAL - US RENAL SONOGRAM Exam Type: US RENAL SONOGRAM Clinical Information: LOWER BACK PAIN Comparison: None Findings: Examination shows normal renal size and echogenicity bilaterally. Preserved cortical thickness and corticomedullary junction region is seen. No hydronephrosis or calculi are seen. No renal masses are seen. There is no evidence of perinephric fluid on either side. No evidence of significant ureteral dilatation is seen. The urinary bladder is normal. No bladder masses, stones, or wall thickening is seen. IMPRESSION: Normal renal anatomy bilaterally. DICTATED BY: HARDIK KAUFMAN MD DATE: 01/22/251748 ELECTRONICALLY SIGNED BY: HARDIK KAUFMAN MD DATE: 01/22/251751 ASSESSMENT: Enterocolitis Scleroderma PLAN: Enterocolitis -Advanced diet to Clear liquid. Will continue to advance diet as tolerated. -IV fluids to maintain hydration and electrolyte balance. -Antibiotics: Ceftriaxone and Metronidazole. -Stool studies pending -Monitor electrolytes, and replace as needed. -Monitor for signs of obstruction: persistent vomiting, severe distention, absent bowel sounds. -Hypoglycemia protocol -Keep hgb >7, transfuse if below 7. -Abdominal x-ray in AM. Results showed normal bowel. -Renal ultrasound- negative. -Gastric emptying study ordered. -Surgery consult if concern for worsening symptoms. Surgery denies any surgical intervention. -GI has been consulted, we will appreciate their recommendations. -Patient on clear liquid diet for now. We will advance diet pending GI consultation and recommendations. This plan has been discussed and approved by my attending, Dr. Rita Edmondson. SHON GONZALEZ MD January 23, 2025 11:28
[2025-01-23] MEDS: LIDOCAINE 4% ADH..PATCH TP SCH (19:29)
[2025-01-24] VITALS (9 sets, daily range): BP systolic 142–174; BP diastolic 72–82; PULSE 73–78; RESP 16–19; TEMP 97.6–98.4; O2SAT 96–98
--- NOTE | 2025-01-24 01:51 | NUR ---
NURSE NOTE PLAN OF CARE DISCUSSED WITH PATIENT IN THE BEGINNING OF SHIFT. VOICED UNDERSTANDING. AWARE OF NPO STATUS AFTER MIDNIGHT. ALL QUESTIONS ASKED. NO CONCERNS VOICED. EDUCATED [employer] AND SAFETY PRECAUTIONS. DENIES PAIN AT THIS TIME. MEDICATED PRN WITH TORADOL EARLIER THIS SHIFT. CONTINUES WITH IV ABTS TOLERATED WELL NO A/R. CALL [facility] AT REACH. BED TO LOWEST LEVEL.
[2025-01-24 04:16] LABS: BASOPHILS # (AUTO) 0.08 K/uL (0.00-0.20); BASOPHILS % (AUTO) 1.5 % (0.0-5.0); EOSINOPHILS # (AUTO) 0.18 K/uL (0.00-0.70); EOSINOPHILS % (AUTO) 3.3 % (0.0-8.0); IMMATURE GRANULOCYTE ABSOLUTE 0.01 K/uL (0-1); LYMPHOCYTES # (AUTO) 1.1 K/uL (1.0-4.8); LYMPHOCYTES % (AUTO) 19.9 % (21.0-51.0); MEAN CORPUSCULAR HEMOGLOBIN 27.2 pg (27.0-33.0); MEAN CORPUSCULAR HGB CONC 32.4 g/dL (32.0-36.0); MEAN CORPUSCULAR VOLUME 83.8 fL (79-99); MONOCYTES % (AUTO) 17.5 % (3.0-13.0); NEUTROPHILS # (AUTO) 3.1 K/uL (1.8-7.7); NEUTROPHILS % (AUTO) 57.6 % (40.0-77.0); PLATELET COUNT (AUTO) 364 K/uL (130-400); RED BLOOD CELL COUNT(AUTO) 3.94 MIL/uL (4.00-5.50); RED CELL DISTRIBUTION WIDTH 15.2 % (11.0-15.5); WHITE BLOOD COUNT (AUTO) 5.4 K/uL (4.8-10.8)
[2025-01-24 04:47] LABS: BILIRUBIN,TOTAL 0.4 mg/dL (0.2-1.0); CREATININE 0.5 mg/dL (0.5-1.0); POTASSIUM 3.7 mmol/L (3.5-5.1); TOTAL PROTEIN, SERUM 5.9 g/dL (6.0-8.3)
--- NOTE | 2025-01-24 05:22 | NUR ---
PATIENT IS REFUSING ACCU CHECKS, REFUSAL FORM SIGNED, PATIENT EDUCATED ON HYPOGLYCEMIA SIGNS AND SYMPTOMS TO REPORT, VOICED UNDERSTANDING. GLUCOSE WITH MORNING LABS AT 110 MG/DL.
[2025-01-24] MEDS ORDERED: LIDOCAINE 4% ADH..PATCH TP SCH (09:00)
--- NOTE | 2025-01-24 11:10 | CONS ---
GASTROENTEROLOGY CONSULTATION NOTE Date of Consultation: January 24, 2025 Time of Consultation: 11:10 History of Present Illness: This is a 64-year-old female with past medical history of bowel obstruction who presented due to abdominal pain, nausea and vomiting. She reported constipation last bowel movement 3 days prior to admission. CT abdomen and pelvis revealing fluid-filled bowel loops suggestive of enterocolitis. KUB was normal. Hemoglobin 10.7 with a platelet count of 267. AST mildly elevated otherwise normal LFTs. Review of Systems: CONSTITUTIONAL: No malaise or change in sensation of wellbeing. ENMT: No rhinorrhea, otorrhea, sinus pain, ear ache. CARDIOVASCULAR: No angina, palpitations, orthopnea or paroxysmal dyspnea. RESPIRATORY: No SOB. GASTROINTESTINAL: No abdominal pain, nausea, vomiting, diarrhea, hematemesis, melena or change in the patient's habitual bowel movements consistency/number. GENITOURINARY: No dysuria, hematuria or change in bladder continence. MUSCULOSKELETAL: No new muscle pain or decrease in muscular strength. No new joint swelling, redness or tenderness. SKIN: No new rash. Past Medical History: PAST MEDICAL HISTORY: As mentioned above PAST SURGICAL HISTORY: Hysterectomy PAST SOCIAL HISTORY: Denied alcohol, tobacco, illicit drug use FAMILY HISTORY: Noncontributory Coded Allergies: No Known Allergies (Unverified Allergy, Unknown, 01/19/25) Physical Exam: GEN: Awake, alert, oriented in person, time and place, and in no acute distress. HEENT: No sinus tenderness. Tympanic membranes were not examined. No rhinorrhea. Oral pharyngeal mucosa is pink, moist and within normal limits. Neck is supple with no cervical lymphadenopathy, thyromegaly or JVD. CHEST: Inspection, palpation and percussion of the chest were unremarkable. Lung auscultation revealed normal breath sounds bilaterally. CARDIAC: PMI is within normal limits. Heart sounds are regular. Normal S1, S2. No gallop or murmur. ABD: Soft, non-tender and not distended. No peritoneal signs on palpation. No organomegaly. Normal bowel sounds. EXT: No cyanosis or clubbing. No edema. SKIN: Intact. No rashes. JOINTS: No evidence of synovitis or acute arthritis. NEURO: Alert and oriented to name, place and person. Cranial nerve examination is unremarkable. No focal motor deficits. Normal speech. Gait is normal. Strength is normal. Vital Sign (Last 24 Hours) 01/24/25 01/24/25 08:00 09:17 Temp 98.1 Pulse 76 Resp 16 B/P (MAP) 155/74 Pulse Ox 96 O2 Delivery Room Air* O2 Flow Rate 0 FiO2 21 Intake & Output (last 24hrs) 01/23/25 01/23/25 01/24/25 15:00 23:00 07:00 Intake Total 1400 ml Output Total 200 ml 1000 ml Balance -200 ml 1400 ml -1000 ml Laboratory: [ ] Laboratory: Test 01/24/25 03:57 01/23/25 16:53 01/23/25 08:17 Range/Units White Blood Count 5.4 # 4.8-10.8 K/uL Red Blood Count 3.94 L 4.00-5.50 MIL/uL Hemoglobin 10.7 L 12.0-16.0 g/dL Hematocrit 33.0 L 36-48 % Mean Corpuscular Volume 83.8 79-99 fL Mean Corpuscular Hemoglobin 27.2 27.0-33.0 pg Mean Corpuscular Hemoglobin Concent 32.4 32.0-36.0 g/dL Red Cell Distribution Width 15.2 11.0-15.5 % Platelet Count 364 130-400 K/uL Mean Platelet Volume 10.3 7.5-10.5 fL Immature Granulocyte % (Auto) 0.2 0-1 % Neutrophils (%) (Auto) 57.6 40.0-77.0 % Lymphocytes (%) (Auto) 19.9 L 21.0-51.0 % Monocytes (%) (Auto) 17.5 H 3.0-13.0 % Eosinophils (%) (Auto) 3.3 0.0-8.0 % Basophils (%) (Auto) 1.5 0.0-5.0 % Neutrophils # (Auto) 3.1 1.8-7.7 K/uL Lymphocytes # (Auto) 1.1 1.0-4.8 K/uL Monocytes # (Auto) 1.0 0.1-1.0 K/uL Eosinophils # (Auto) 0.18 0.00-0.70 K/uL Basophils # (Auto) 0.08 0.00-0.20 K/uL Absolute Immature Granulocyte (auto 0.01 0-1 K/uL Nucleated Red Blood Cells 0.0 0.0-0.19 % White Cell Morphology Comment See comments Sodium Level 143 136-145 mmol/L Potassium Level 3.7 3.5-5.1 mmol/L Chloride Level 108 101-111 mmol/L Carbon Dioxide Level 25 21-32 mmol/L Blood Urea Nitrogen 6 L 7-18 mg/dL Creatinine 0.5 0.5-1.0 mg/dL Glomerular Filtration Rate Calc 103 >90 mL/min Random Glucose 110 H 70-105 mg/dL Lactic Acid Level 1.0 0.8-2.5 mmol/L Total Calcium 8.5 8.5-10.1 mg/dL Total Bilirubin 0.4 0.2-1.0 mg/dL Aspartate Amino Transf (AST/SGOT) 40 H 10-37 U/L Alanine Aminotransferase (ALT/SGPT) 26 # 12-78 U/L Alkaline Phosphatase 109 50-136 U/L C-Reactive Protein, Quantitative 8.50 H 0.5-3.0 mg/L Total Protein 5.9 L 6.0-8.3 g/dL Albumin 3.0 L 3.5-5.0 g/dL Whole Blood Glucose 93 70-110 MG/DL Erythrocyte Sedimentation Rate 19 0-30 MM/HR Current Medications Medications (Trade) Dose Ordered Sig/Sarah Route PRN Reason Start Time Stop Time Status Last Admin Dose Admin Acetaminophen (TYLenol 325MG TAB) 650 mg Q6H PRN PO FEVER/MILD PAIN LEVEL 1-3 01/20/25 03:00 02/19/25 02:59 Acetaminophen (TYLenol 650MG SUPPOSITORY) 650 mg Q6H PRN RC FEVER / MILD PAIN 1-3 IF NPO 01/20/25 03:00 02/19/25 02:59 Ceftriaxone Sodium (Rocephin 2gm Inj) 2 gm Q24H IVPB 01/21/25 01:00 01/31/25 00:59 01/24/25 00:44 2 GM Dextrose (D50w) 50 ml AD PRN IV HYPOGLYCEMIA PROTOCOL 01/20/25 12:00 02/19/25 11:59 01/20/25 16:56 50 ML Docusate Sodium (COLace 100MG CAP) 100 mg BID PRN PO c 01/20/25 03:00 02/19/25 02:59 Enoxaparin Sodium (Lovenox) 30 mg DAILY SQ 01/20/25 09:00 02/19/25 08:59 01/24/25 08:47 30 MG Famotidine (Pepcid 20mg Tab) 20 mg BID PO 01/20/25 09:00 02/19/25 08:59 01/23/25 20:43 20 MG Ferrous Sulfate (Ferrous Sulfate) 325 mg DAILY PO 01/20/25 09:00 02/19/25 08:59 Glucagon (Glucagon 1mg Kit) 1 mg AD PRN IM HYPOGLYCEMIA PROTOCOL 01/20/25 12:00 02/19/25 11:59 Hydralazine HCl (APRESOLine 20MG INJ) 10 mg Q6H PRN IV SBP GREATER THAN 160 01/20/25 03:00 02/19/25 02:59 01/22/25 21:02 10 MG Insulin Human Regular (humuLIN R 100 UNIT/ML 3ML) INSULIN SLIDING SCAL... ACHS SQ 01/20/25 07:30 02/19/25 07:29 Ketorolac Tromethamine (toRADol) 15 mg Q6H PRN IV MODERATE PAIN (4-6) 01/20/25 06:00 01/25/25 05:59 01/23/25 23:30 15 MG Lactated Ringer's 1,000 ml @ 75 mls/hr [id number] IV 01/20/25 03:00 02/19/25 02:59 01/23/25 13:48 75 MLS/HR Lactulose (Constulose 20gm/ 30ml Udcup) 20 gm Q6H PRN PO CONSTIPATION 01/20/25 03:00 02/19/25 02:59 Lidocaine (Lidocaine Patch 4%) 1 each DAILY TP 01/24/25 09:00 01/23/25 18:55 DC Lidocaine (Lidocaine Patch 4%) 1 each Q24H TP 01/23/25 19:00 02/22/25 18:59 01/23/25 19:29 1 EACH Metronidazole/ Sodium Chloride (flaGYL) 500 mg Q8H IV 01/20/25 17:00 01/30/25 16:59 01/24/25 08:47 500 MG Ondansetron HCl (zoFRAN 4MG INJ) 4 mg Q6H PRN IVP NAUSEA/VOMITING 01/20/25 03:00 02/19/25 02:59 Potassium Chloride 100 ml @ 100 mls/hr AD PRN IV POTASSIUM PROTOCOL 01/20/25 16:30 02/19/25 16:29 01/21/25 10:09 100 MLS/HR Potassium Chloride (K-Dur/Klor-Con 20meq) 20 meq AD PRN PO POTASSIUM PROTOCOL 01/20/25 16:30 01/24/25 07:47 DC Potassium Chloride (K-Dur/Klor-Con 20meq) 20 meq AD PRN PO POTASSIUM PROTOCOL 01/21/25 17:30 02/20/25 17:29 Potassium Chloride (KCl 10% Elixir 20meq/15ml) 20 meq AD PRN PO POTASSIUM PROTOCOL 01/20/25 16:30 01/24/25 07:46 DC 01/23/25 18:20 20 MEQ Potassium Chloride (KCl 10% Elixir 20meq/15ml) 20 meq AD PRN PO POTASSIUM PROTOCOL 01/21/25 17:30 02/20/25 17:29 Temazepam (restORIL 15 MG CAP) 15 mg HS PRN PO INSOMNIA/SLEEP 01/20/25 03:00 02/19/25 02:59 01/21/25 23:26 15 MG Diagnostics / Radiology: [COPY/PASTE HERE IF NO REPORTS PLEASE DELETE SECTION] Assessment: Abdominal pain N/V Constipation Abnormal imaging revealing enterocolitis Plan: EGD in am Continue with Gastric emptying scan when available Continue GI prophylaxis Advance diet as tolerated Avoid NSAIDs Antireflux measures Monitor H&H and transfuse as needed Call with questions, concerns or change in clinical status Patient to follow-up at clinic post discharge Thank you for this consult BRITT CHANDLER [employer] January 24, 2025 11:10
--- NOTE | 2025-01-24 11:11 | PN ---
[facility] PROGRESS NOTE Date of Service: January 24, 2025 Time of Service: 11:07 SUBJECTIVE: Patient is a 64 year old female with a past medical history of Scleroderma presented to the Emergency Department with complaints of abdominal pain for 1 week, along with nausea, vomiting, and constipation. The patient denies diarrhea, fever, shortness of breath, and chest pain. The patient reports her last bowel movement was [address] scan of the abdomen and pelvis showed fluid filled small bowel loops and colon suggestive of enterocolitis. The patient states that on FridayJanuary 16, she had episodes of diarrhea that lasted for 1 day. The following January 18, the patient reports experiencing episodes of abdominal bloating, and a loss of appetite. The patient states that the abdominal bloating and abdominal pain lasted throughout the entire night, and by Friday she took a whole bottle of magnesium citrate to help alleviate her pain. The patient states that by 7pm, she began have episodes of vomiting, and constipation. The patient states that she had a bowel obstruction 10 years ago. The patient does not report taking any medications at home. 01/20: Patient was seen and examined this morning at bedside. Patient continues on Ceftriaxone. Patient denies chest pain, shortness of breath, nausea, vomiting, fever, chills, diarrhea. The patient reports her abdominal pain is a 4/10 on the pain scale, and that the tenderness is worse in the left upper quadrant of her abdomen. The patient reports 3 episodes of diarrhea this morning, but denies passing gas. The patient is currently NPO except for ice chips. The patient is afebrile, saturating well on room air. Per nurse, the patients blood pressure has been high. Once pain medication is given, there is a significant drop to her blood pressure. We will continue to monitor the patient. The patient will be getting a abdominal x-ray in the AM. 01/21: Patient was seen and examined this morning at bedside. The patient denies chest pain, shortness of breath, nausea, vomiting, fever, chills. The patient reports having a soft, loose bowel movement this morning. The patient denies flatulence. The patient is clinically looking well. We have advanced her diet to clear liquid diet. A abdominal x-ray was done this morning, which showed a norm al abdomen and no signs of obstruction. We will continue to monitor the patient, and advance the diet as tolerated. 01/22/25 patient was seen and examined. Case discussed with RN and family by the bedside. She reports significant pain in the left flank that comes and goes and is requiring morphine. She was still not passing gas. We will get renal ultrasound ordered. We will also have GI and surgery evaluate the patient 01/23: Patient was seen and examined this morning at bedside. The patient states she is feeling much better. Patient states she still has dull pain in her left upper quadrant. The patient rates it a 4/10 on the pain scale. The patient states she is passing stool, and believes she has passed gas. The patient denies nausea, vomiting, fever, chills, diarrhea, constipation. Renal ultrasound came back negative. Abdominal x-ray is negative for obstruction. Her abdominal pain is likely due to pseudo-obstruction due to dysmotility from her history of Scleroderma. GI has been consulted, we will appreciate their recommendations. Surgery was consulted, and denies any surgical intervention. We will obtain a gastric emptying study. 01/24: Patient was seen and examined this morning at bedside. Patient still reports pain in her left upper quadrant. Patient was on clear liquid diet, and states that she feels bloated and has intractable abdominal pain after eating. The patient will be undergoing gastric emptying study today, and is currently NPO. The patient will be started on Bentyl for abdominal pain. GI has been consulted due to intractable abdominal pain and scleroderma effecting esophagus. Patient has not passed gas. Patient had bowel movement this morning. REVIEW OF SYSTEMS 12-point ROS reviewed with the patient. All pertinent positives mentioned above. Otherwise negative, noncontributory, nonpertinent. PHYSICAL EXAM GENERAL APPEARANCE: The patient is awake, alert, and oriented, in no acute cardiopulmonary distress. NEUROLOGICAL: Cranial nerves II-XII grossly intact. Motor is 5/5 in bilateral upper and lower extremities proximal to distal. No sensory deficits. HEENT: Face is symmetric. Pupils are equal and reactive. Extraocular movements are intact. NECK: Supple. No JVD. No thyromegaly. No submental, submandibular, pre- /postauricular, occipital or supraclavicular lymphadenopathy. CHEST: Normal chest expansion. No Telemetry. LUNGS: Absence of any rales, rhonchi or any wheezing. CARDIOVASCULAR: Regular. S1 and S2 normal. No appreciable rubs, murmurs or gallops. ABDOMEN: Soft, nondistended. Tenderness in left upper quadrant. There is no rebound, voluntary guarding, or rigidity. Bowel sounds heard in all four quadrants. : Deferred. No [place]. EXTREMITIES: Non-edematous and not cyanotic. No clubbing. Good capillary refill. SKIN: No skin breakdown. Vital Signs (last 8hr) Date Time Temp Pulse Resp B/P (MAP) Pulse Ox O2 Delivery O2 Flow Rate FiO2 01/24/25 09:17 96 Room Air* 0 21 01/24/25 08:00 98.1 76 16 155/74 96 Room Air 01/24/25 04:00 98.4 77 19 142/82 98 Room Air LABS: Laboratory: Test 01/24/25 03:57 01/23/25 16:53 01/23/25 08:17 Range/Units White Blood Count 5.4 # 4.8-10.8 K/uL Red Blood Count 3.94 L 4.00-5.50 MIL/uL Hemoglobin 10.7 L 12.0-16.0 g/dL Hematocrit 33.0 L 36-48 % Mean Corpuscular Volume 83.8 79-99 fL Mean Corpuscular Hemoglobin 27.2 27.0-33.0 pg Mean Corpuscular Hemoglobin Concent 32.4 32.0-36.0 g/dL Red Cell Distribution Width 15.2 11.0-15.5 % Platelet Count 364 130-400 K/uL Mean Platelet Volume 10.3 7.5-10.5 fL Immature Granulocyte % (Auto) 0.2 0-1 % Neutrophils (%) (Auto) 57.6 40.0-77.0 % Lymphocytes (%) (Auto) 19.9 L 21.0-51.0 % Monocytes (%) (Auto) 17.5 H 3.0-13.0 % Eosinophils (%) (Auto) 3.3 0.0-8.0 % Basophils (%) (Auto) 1.5 0.0-5.0 % Neutrophils # (Auto) 3.1 1.8-7.7 K/uL Lymphocytes # (Auto) 1.1 1.0-4.8 K/uL Monocytes # (Auto) 1.0 0.1-1.0 K/uL Eosinophils # (Auto) 0.18 0.00-0.70 K/uL Basophils # (Auto) 0.08 0.00-0.20 K/uL Absolute Immature Granulocyte (auto 0.01 0-1 K/uL Nucleated Red Blood Cells 0.0 0.0-0.19 % White Cell Morphology Comment See comments Sodium Level 143 136-145 mmol/L Potassium Level 3.7 3.5-5.1 mmol/L Chloride Level 108 101-111 mmol/L Carbon Dioxide Level 25 21-32 mmol/L Blood Urea Nitrogen 6 L 7-18 mg/dL Creatinine 0.5 0.5-1.0 mg/dL Glomerular Filtration Rate Calc 103 >90 mL/min Random Glucose 110 H 70-105 mg/dL Lactic Acid Level 1.0 0.8-2.5 mmol/L Total Calcium 8.5 8.5-10.1 mg/dL Total Bilirubin 0.4 0.2-1.0 mg/dL Aspartate Amino Transf (AST/SGOT) 40 H 10-37 U/L Alanine Aminotransferase (ALT/SGPT) 26 # 12-78 U/L Alkaline Phosphatase 109 50-136 U/L C-Reactive Protein, Quantitative 8.50 H 0.5-3.0 mg/L Total Protein 5.9 L 6.0-8.3 g/dL Albumin 3.0 L 3.5-5.0 g/dL Whole Blood Glucose 93 70-110 MG/DL Erythrocyte Sedimentation Rate 19 0-30 MM/HR Current Medications Medications (Trade) Dose Ordered Sig/Sarah Route PRN Reason Start Time Stop Time Status Last Admin Dose Admin Acetaminophen (TYLenol 325MG TAB) 650 mg Q6H PRN PO FEVER/MILD PAIN LEVEL 1-3 01/20/25 03:00 02/19/25 02:59 Acetaminophen (TYLenol 650MG SUPPOSITORY) 650 mg Q6H PRN RC FEVER / MILD PAIN 1-3 IF NPO 01/20/25 03:00 02/19/25 02:59 Ceftriaxone Sodium (Rocephin 2gm Inj) 2 gm Q24H IVPB 01/21/25 01:00 01/31/25 00:59 01/24/25 00:44 2 GM Dextrose (D50w) 50 ml AD PRN IV HYPOGLYCEMIA PROTOCOL 01/20/25 12:00 02/19/25 11:59 01/20/25 16:56 50 ML Docusate Sodium (COLace 100MG CAP) 100 mg BID PRN PO c 01/20/25 03:00 02/19/25 02:59 Enoxaparin Sodium (Lovenox) 30 mg DAILY SQ 01/20/25 09:00 02/19/25 08:59 01/24/25 08:47 30 MG Famotidine (Pepcid 20mg Tab) 20 mg BID PO 01/20/25 09:00 02/19/25 08:59 01/23/25 20:43 20 MG Ferrous Sulfate (Ferrous Sulfate) 325 mg DAILY PO 01/20/25 09:00 02/19/25 08:59 Glucagon (Glucagon 1mg Kit) 1 mg AD PRN IM HYPOGLYCEMIA PROTOCOL 01/20/25 12:00 02/19/25 11:59 Hydralazine HCl (APRESOLine 20MG INJ) 10 mg Q6H PRN IV SBP GREATER THAN 160 01/20/25 03:00 02/19/25 02:59 01/22/25 21:02 10 MG Insulin Human Regular (humuLIN R 100 UNIT/ML 3ML) INSULIN SLIDING SCAL... ACHS SQ 01/20/25 07:30 02/19/25 07:29 Ketorolac Tromethamine (toRADol) 15 mg Q6H PRN IV MODERATE PAIN (4-6) 01/20/25 06:00 01/25/25 05:59 01/23/25 23:30 15 MG Lactated Ringer's 1,000 ml @ 75 mls/hr [id number] IV 01/20/25 03:00 02/19/25 02:59 01/23/25 13:48 75 MLS/HR Lactulose (Constulose 20gm/ 30ml Udcup) 20 gm Q6H PRN PO CONSTIPATION 01/20/25 03:00 02/19/25 02:59 Lidocaine (Lidocaine Patch 4%) 1 each DAILY TP 01/24/25 09:00 01/23/25 18:55 DC Lidocaine (Lidocaine Patch 4%) 1 each Q24H TP 01/23/25 19:00 02/22/25 18:59 01/23/25 19:29 1 EACH Metronidazole/ Sodium Chloride (flaGYL) 500 mg Q8H IV 01/20/25 17:00 01/30/25 16:59 01/24/25 08:47 500 MG Ondansetron HCl (zoFRAN 4MG INJ) 4 mg Q6H PRN IVP NAUSEA/VOMITING 01/20/25 03:00 02/19/25 02:59 Potassium Chloride 100 ml @ 100 mls/hr AD PRN IV POTASSIUM PROTOCOL 01/20/25 16:30 02/19/25 16:29 01/21/25 10:09 100 MLS/HR Potassium Chloride (K-Dur/Klor-Con 20meq) 20 meq AD PRN PO POTASSIUM PROTOCOL 01/20/25 16:30 01/24/25 07:47 DC Potassium Chloride (K-Dur/Klor-Con 20meq) 20 meq AD PRN PO POTASSIUM PROTOCOL 01/21/25 17:30 02/20/25 17:29 Potassium Chloride (KCl 10% Elixir 20meq/15ml) 20 meq AD PRN PO POTASSIUM PROTOCOL 01/20/25 16:30 01/24/25 07:46 DC 01/23/25 18:20 20 MEQ Potassium Chloride (KCl 10% Elixir 20meq/15ml) 20 meq AD PRN PO POTASSIUM PROTOCOL 01/21/25 17:30 02/20/25 17:29 Temazepam (restORIL 15 MG CAP) 15 mg HS PRN PO INSOMNIA/SLEEP 01/20/25 03:00 02/19/25 02:59 01/21/25 23:26 15 MG DIAGNOSTICS / RADIOLOGY: [ ] ASSESSMENT: Enterocolitis Scleroderma PLAN: Enterocolitis -Advanced diet to Clear liquid. Will continue to advance diet as tolerated. -Currently NPO for gastric emptying study. -IV fluids to maintain hydration and electrolyte balance. -Antibiotics: Ceftriaxone and Metronidazole. -Monitor electrolytes, and replace as needed. -Monitor for signs of obstruction: persistent vomiting, severe distention, absent bowel sounds. -Hypoglycemia protocol -Keep hgb >7, transfuse if below 7. -Abdominal x-ray in AM. Results showed normal bowel. -Renal ultrasound- negative. -Gastric emptying study ordered. -Surgery consult if concern for worsening symptoms. Surgery denies any surgical intervention. -GI has been consulted for intractable abdominal pain and scleroderma, we will appreciate their recommendations. This plan has been discussed and approved by my attending, SHON Tariq MD January 24, 2025 11:11
[2025-01-24] MEDS ORDERED: DICYCLOMINE HCL 20 MG TAB PO PRN (12:30)
--- NOTE | 2025-01-24 14:00 | NUR ---
Updated Dr aBrahona on [place] unable to perform procedure du e to the machinery brekning down This procedure writer received an order to resume clear liquids.
--- NOTE | 2025-01-24 18:47 | NUR ---
Secured consent for EGD orders sent to warehouse person and educated the patient on remaining NPO after midnight tonight for EGD
--- NOTE | 2025-01-24 23:35 | NUR ---
PATIENT REFUSED HYDRALAZINE IV. PER PATIENT, HYDRALAZINE IV MAKES HER HEAD HURT A LOT.
[2025-01-25] VITALS (21 sets, daily range): BP systolic 117–189; BP diastolic 59–96; PULSE 60–101; RESP 15–19; TEMP 97.4–98.5; O2SAT 97–98
[2025-01-25 06:02] LABS: BASOPHILS # (AUTO) 0.09 K/uL (0.00-0.20); BASOPHILS % (AUTO) 1.4 % (0.0-5.0); EOSINOPHILS % (AUTO) 1.5 % (0.0-8.0); HEMATOCRIT 34.9 % (36-48); LYMPHOCYTES # (AUTO) 1.3 K/uL (1.0-4.8); LYMPHOCYTES % (AUTO) 19.4 % (21.0-51.0); MEAN CORPUSCULAR HEMOGLOBIN 27.2 pg (27.0-33.0); MEAN CORPUSCULAR HGB CONC 32.4 g/dL (32.0-36.0); MEAN CORPUSCULAR VOLUME 84.1 fL (79-99); MONOCYTES # (AUTO) 0.8 K/uL (0.1-1.0); MONOCYTES % (AUTO) 12.9 % (3.0-13.0); NEUTROPHILS # (AUTO) 4.2 K/uL (1.8-7.7); NEUTROPHILS % (AUTO) 64.8 % (40.0-77.0); PLATELET COUNT (AUTO) 388 K/uL (130-400); RED BLOOD CELL COUNT(AUTO) 4.15 MIL/uL (4.00-5.50); WHITE BLOOD COUNT (AUTO) 6.5 K/uL (4.8-10.8)
[2025-01-25 06:08] LABS: ALBUMIN 3.2 g/dL (3.5-5.0); BILIRUBIN,TOTAL 0.4 mg/dL (0.2-1.0); CREATININE 0.4 mg/dL (0.5-1.0); POTASSIUM 3.6 mmol/L (3.5-5.1); TOTAL PROTEIN, SERUM 6.2 g/dL (6.0-8.3)
[2025-01-25] MEDS ORDERED: proPOFol 10 MG/ML 20ML VIAL IV ONE ×2 (07:58→08:33)
[2025-01-25] MEDS: PoTASSium chl 10% ELIXIR 20MEQ 20 MEQ/15 ML UDCUP PO PRN (09:30)
--- NOTE | 2025-01-25 10:17 | NUR ---
Dr Bee at bedside goes over the results of the EGD.
--- NOTE | 2025-01-25 11:03 | PN ---
[facility] PROGRESS NOTE Date of Service: January 25, 2025 Time of Service: 10:48 SUBJECTIVE: Patient is a 64 year old female with a past medical history of Scleroderma presented to the Emergency Department with complaints of abdominal pain for 1 week, along with nausea, vomiting, and constipation. The patient denies diarrhea, fever, shortness of breath, and chest pain. The patient reports her last bowel movement was [address] scan of the abdomen and pelvis showed fluid filled small bowel loops and colon suggestive of enterocolitis. The patient states that on FridayJanuary 16, she had episodes of diarrhea that lasted for 1 day. The following January 18, the patient reports experiencing episodes of abdominal bloating, and a loss of appetite. The patient states that the abdominal bloating and abdominal pain lasted throughout the entire night, and by Friday she took a whole bottle of magnesium citrate to help alleviate her pain. The patient states that by 7pm, she began have episodes of vomiting, and constipation. The patient states that she had a bowel obstruction 10 years ago. The patient does not report taking any medications at home. 01/20: Patient was seen and examined this morning at bedside. Patient continues on Ceftriaxone. Patient denies chest pain, shortness of breath, nausea, vomiting, fever, chills, diarrhea. The patient reports her abdominal pain is a 4/10 on the pain scale, and that the tenderness is worse in the left upper quadrant of her abdomen. The patient reports 3 episodes of diarrhea this morning, but denies passing gas. The patient is currently NPO except for ice chips. The patient is afebrile, saturating well on room air. Per nurse, the patients blood pressure has been high. Once pain medication is given, there is a significant drop to her blood pressure. We will continue to monitor the patient. The patient will be getting a abdominal x-ray in the AM. 01/21: Patient was seen and examined this morning at bedside. The patient denies chest pain, shortness of breath, nausea, vomiting, fever, chills. The patient reports having a soft, loose bowel movement this morning. The patient denies flatulence. The patient is clinically looking well. We have advanced her diet to clear liquid diet. A abdominal x-ray was done this morning, which showed a norm al abdomen and no signs of obstruction. We will continue to monitor the patient, and advance the diet as tolerated. 01/22/25 patient was seen and examined. Case discussed with RN and family by the bedside. She reports significant pain in the left flank that comes and goes and is requiring morphine. She was still not passing gas. We will get renal ultrasound ordered. We will also have GI and surgery evaluate the patient 01/23: Patient was seen and examined this morning at bedside. The patient states she is feeling much better. Patient states she still has dull pain in her left upper quadrant. The patient rates it a 4/10 on the pain scale. The patient states she is passing stool, and believes she has passed gas. The patient denies nausea, vomiting, fever, chills, diarrhea, constipation. Renal ultrasound came back negative. Abdominal x-ray is negative for obstruction. Her abdominal pain is likely due to pseudo-obstruction due to dysmotility from her history of Scleroderma. GI has been consulted, we will appreciate their recommendations. Surgery was consulted, and denies any surgical intervention. We will obtain a gastric emptying study. 01/24: Patient was seen and examined this morning at bedside. Patient still reports pain in her left upper quadrant. Patient was on clear liquid diet, and states that she feels bloated and has intractable abdominal pain after eating. The patient will be undergoing gastric emptying study today, and is currently NPO. The patient will be started on Bentyl for abdominal pain. GI has been consulted due to intractable abdominal pain and scleroderma effecting esophagus. Patient has not passed gas. Patient had bowel movement this morning. 01/25: Patient was seen and examined this morning at bedside. Patient is s/p EGD today. EGD results were reviewed with patient. Patients diet has been advanced to clear liquid diet. We will advance the diet as tolerated. The patient did not get gastric emptying study due to the machine being down. Patient started on 40mg Protonix BID as per GI recommendations. Patient started on 2.5 mg of Lisinopril for elevated blood pressure. No oral potassium replacement, only IV due to oral replacement potential to worsen abdominal inflammation. REVIEW OF SYSTEMS 12-point ROS reviewed with the patient. All pertinent positives mentioned above. Otherwise negative, noncontributory, nonpertinent. PHYSICAL EXAM GENERAL APPEARANCE: The patient is awake, alert, and oriented, in no acute c ardiopulmonary distress. NEUROLOGICAL: Cranial nerves II-XII grossly intact. Motor is 5/5 in bilateral upper and lower extremities proximal to distal. No sensory deficits. HEENT: Face is symmetric. Pupils are equal and reactive. Extraocular movements are intact. NECK: Supple. No JVD. No thyromegaly. No submental, submandibular, pre- /postauricular, occipital or supraclavicular lymphadenopathy. CHEST: Normal chest expansion. No Telemetry. LUNGS: Absence of any rales, rhonchi or any wheezing. CARDIOVASCULAR: Regular. S1 and S2 normal. No appreciable rubs, murmurs or gallops. ABDOMEN: Soft, nondistended. Tenderness in left upper quadrant. There is no rebound, voluntary guarding, or rigidity. Bowel sounds heard in all four quadrants. : Deferred. No [place]. EXTREMITIES: Non-edematous and not cyanotic. No clubbing. Good capillary refill. SKIN: No skin breakdown. Vital Signs (last 8hr) Date Time Temp Pulse Resp B/P (MAP) Pulse Ox O2 Delivery O2 Flow Rate FiO2 01/25/25 09:13 97.5 94 17 125/60 98 Room Air 01/25/25 09:08 97 16 129/64 98 Room Air 01/25/25 09:03 96 17 127/63 98 Room Air 01/25/25 08:58 97 16 129/68 98 Room Air 01/25/25 08:53 95 16 117/59 99 Room Air 01/25/25 08:48 97 17 122/61 100 Nonrebreathing Mask 10.0 01/25/25 08:43 97.3 101 16 133/67 100 Nonrebreathing Mask 10.0 01/25/25 07:28 98 Room Air* 0 21 01/25/25 04:00 98.1 76 18 168/96 97 Room Air LABS: Laboratory: Test 01/25/25 05:23 01/25/25 05:10 01/24/25 03:57 Range/Units Whole Blood Glucose 98 70-110 MG/DL White Blood Count 6.5 4.8-10.8 K/uL Red Blood Count 4.15 4.00-5.50 MIL/uL Hemoglobin 11.3 L 12.0-16.0 g/dL Hematocrit 34.9 L 36-48 % Mean Corpuscular Volume 84.1 79-99 fL Mean Corpuscular Hemoglobin 27.2 27.0-33.0 pg Mean Corpuscular Hemoglobin Concent 32.4 32.0-36.0 g/dL Red Cell Distribution Width 15.0 11.0-15.5 % Platelet Count 388 130-400 K/uL Mean Platelet Volume 10.2 7.5-10.5 fL Immature Granulocyte % (Auto) 0.0 0-1 % Neutrophils (%) (Auto) 64.8 40.0-77.0 % Lymphocytes (%) (Auto) 19.4 L 21.0-51.0 % Monocytes (%) (Auto) 12.9 3.0-13.0 % Eosinophils (%) (Auto) 1.5 0.0-8.0 % Basophils (%) (Auto) 1.4 0.0-5.0 % Neutrophils # (Auto) 4.2 1.8-7.7 K/uL Lymphocytes # (Auto) 1.3 1.0-4.8 K/uL Monocytes # (Auto) 0.8 0.1-1.0 K/uL Eosinophils # (Auto) 0.10 0.00-0.70 K/uL Basophils # (Auto) 0.09 0.00-0.20 K/uL Absolute Immature Granulocyte (auto 0.00 0-1 K/uL Nucleated Red Blood Cells 0.0 0.0-0.19 % Sodium Level 140 136-145 mmol/L Potassium Level 3.6 3.5-5.1 mmol/L Chloride Level 103 101-111 mmol/L Carbon Dioxide Level 27 21-32 mmol/L Blood Urea Nitrogen 6 L 7-18 mg/dL Creatinine 0.4 L 0.5-1.0 mg/dL Glomerular Filtration Rate Calc 109 >90 mL/min Random Glucose 105 70-105 mg/dL Total Calcium 9.0 8.5-10.1 mg/dL Total Bilirubin 0.4 0.2-1.0 mg/dL Aspartate Amino Transf (AST/SGOT) 95 H 10-37 U/L Alanine Aminotransferase (ALT/SGPT) 53 12-78 U/L Alkaline Phosphatase 124 50-136 U/L C-Reactive Protein, Quantitative 6.80 H 0.5-3.0 mg/L Total Protein 6.2 6.0-8.3 g/dL Albumin 3.2 L 3.5-5.0 g/dL White Cell Morphology Comment See comments Lactic Acid Level 1.0 0.8-2.5 mmol/L Current Medications Medications (Trade) Dose Ordered Sig/Sarah Route PRN Reason Start Time Stop Time Status Last Admin Dose Admin Acetaminophen (TYLenol 325MG TAB) 650 mg Q6H PRN PO FEVER/MILD PAIN LEVEL 1-3 01/20/25 03:00 02/19/25 02:59 Acetaminophen (TYLenol 650MG SUPPOSITORY) 650 mg Q6H PRN RC FEVER / MILD PAIN 1-3 IF NPO 01/20/25 03:00 02/19/25 02:59 Ceftriaxone Sodium (Rocephin 2gm Inj) 2 gm Q24H IVPB 01/21/25 01:00 01/31/25 00:59 01/25/25 00:22 2 GM Dextrose (D50w) 50 ml AD PRN IV HYPOGLYCEMIA PROTOCOL 01/20/25 12:00 02/19/25 11:59 01/20/25 16:56 50 ML Dicyclomine HCl (Bentyl 20mg Tab) 10 mg TID PRN PO abdominal pain 01/24/25 12:30 02/23/25 12:29 Docusate Sodium (COLace 100MG CAP) 100 mg BID PRN PO c 01/20/25 03:00 02/19/25 02:59 Enoxaparin Sodium (Lovenox) 30 mg DAILY SQ 01/20/25 09:00 02/19/25 08:59 01/25/25 09:30 30 MG Famotidine (Pepcid 20mg Tab) 20 mg BID PO 01/20/25 09:00 02/19/25 08:59 01/25/25 09:30 20 MG Ferrous Sulfate (Ferrous Sulfate) 325 mg DAILY PO 01/20/25 09:00 02/19/25 08:59 01/25/25 09:30 325 MG Glucagon (Glucagon 1mg Kit) 1 mg AD PRN IM HYPOGLYCEMIA PROTOCOL 01/20/25 12:00 02/19/25 11:59 Hydralazine HCl (APRESOLine 20MG INJ) 10 mg Q6H PRN IV SBP GREATER THAN 160 01/20/25 03:00 02/19/25 02:59 01/22/25 21:02 10 MG Insulin Human Regular (humuLIN R 100 UNIT/ML 3ML) INSULIN SLIDING SCAL... ACHS SQ 01/20/25 07:30 02/19/25 07:29 Ketorolac Tromethamine (toRADol) 15 mg Q6H PRN IV MODERATE PAIN (4-6) 01/20/25 06:00 01/25/25 05:59 DC 01/25/25 00:23 15 MG Lactated Ringer's 1,000 ml @ 75 mls/hr [id number] IV 01/20/25 03:00 02/19/25 02:59 01/24/25 19:54 75 MLS/HR Lactulose (Constulose 20gm/ 30ml Udcup) 20 gm Q6H PRN PO CONSTIPATION 01/20/25 03:00 02/19/25 02:59 Lidocaine (Lidocaine Patch 4%) 1 each DAILY TP 01/24/25 09:00 01/23/25 18:55 DC Lidocaine (Lidocaine Patch 4%) 1 each Q24H TP 01/23/25 19:00 02/22/25 18:59 01/24/25 19:47 1 EACH Lisinopril (Prinivil 2.5mg) 2.5 mg DAILY PO 01/26/25 09:00 02/25/25 08:59 UNV Metronidazole/ Sodium Chloride (flaGYL) 500 mg Q8H IV 01/20/25 17:00 01/30/25 16:59 01/25/25 09:30 500 MG Ondansetron HCl (zoFRAN 4MG INJ) 4 mg Q6H PRN IVP NAUSEA/VOMITING 01/20/25 03:00 02/19/25 02:59 Potassium Chloride 100 ml @ 100 mls/hr AD PRN IV POTASSIUM PROTOCOL 01/20/25 16:30 02/19/25 16:29 01/21/25 10:09 100 MLS/HR Potassium Chloride (K-Dur/Klor-Con 20meq) 20 meq AD PRN PO POTASSIUM PROTOCOL 01/20/25 16:30 01/24/25 07:47 DC Potassium Chloride (K-Dur/Klor-Con 20meq) 20 meq AD PRN PO POTASSIUM PROTOCOL 01/21/25 17:30 02/20/25 17:29 Potassium Chloride (KCl 10% Elixir 20meq/15ml) 20 meq AD PRN PO POTASSIUM PROTOCOL 01/20/25 16:30 01/24/25 07:46 DC 01/23/25 18:20 20 MEQ Potassium Chloride (KCl 10% Elixir 20meq/15ml) 20 meq AD PRN PO POTASSIUM PROTOCOL 01/21/25 17:30 02/20/25 17:29 01/25/25 09:30 20 MEQ Temazepam (restORIL 15 MG CAP) 15 mg HS PRN PO INSOMNIA/SLEEP 01/20/25 03:00 02/19/25 02:59 01/21/25 23:26 15 MG DIAGNOSTICS / RADIOLOGY: [ ] ASSESSMENT: Enterocolitis Scleroderma PLAN: Enterocolitis -Advanced diet to Clear liquid. Will continue to advance diet as tolerated. -IV fluids to maintain hydration and electrolyte balance. -Antibiotics: Ceftriaxone and Metronidazole. -Monitor electrolytes, and replace as needed. -Monitor for signs of obstruction: persistent vomiting, severe distention, absent bowel sounds. -Hypoglycemia protocol -Keep hgb >7, transfuse if below 7. -Abdominal x-ray in AM. Results showed normal bowel. -Renal ultrasound- negative. -Gastric emptying study ordered. Unable to do due to machine being down. -Surgery consult if concern for worsening symptoms. Surgery denies any surgical intervention. -GI has been consulted for intractable abdominal pain and scleroderma, we will appreciate their recommendations. -Patient s/p EGD. -40 mg protonix BID started as per GI recommendations. This plan has been discussed and approved by my attending, SHON Alejandra MD January 25, 2025 11:03
--- NOTE | 2025-01-25 14:24 | HMCIMG ---
Nuclear medicine gastric emptying study HISTORY: eval for gastroparesis in pt with scleroderma . COMPARISON: No relevant prior studies. RADIOPHARMACEUTICAL: 1 mCi of technetium 99 sulfur colloid TECHNIQUE: Dynamic computer imaging and serial static images were performed over the anterior abdomen for 1 hour. Static images obtained up to 2 hours. By region of interest computer analysis, a time/activity curve for the stomach was generated and a T 1/2 for clearance of activity was determined. FINDINGS: Review of dynamic images does not demonstrate any gastroesophageal reflux. The normal pattern of gastric emptying is appreciated. T 1/2: 397 minutes (normal 55-90 minutes). Percent empty at 1 hour: 14 percent (less than 40 percent at one hour is consistent with delayed emptying). IMPRESSION: Severe gastroparesis.
[2025-01-25] MEDS: PANTOPrazole 40 MG TAB DR PO SCH (20:31)
--- NOTE | 2025-01-25 22:36 | NUR ---
[facility] paged to notify of SBP >170. Pending call back.
--- NOTE | 2025-01-25 23:10 | NUR ---
Orders Orders for a antihypertensive given at this time. Order repeated back to Jimbo Rios and entered.
--- NOTE | 2025-01-25 23:41 | NUR ---
orders Patient c/o pain despite the lidocaine patch. Offered Tylenol, patient opted out of this medication, causes nausea and vomiting. Orders for a narcotic given by Gabriel Choi. Repeated and entered.
[2025-01-26] VITALS: BP 196/82; PULSE 84; RESP 17; TEMP 98
[2025-01-26] MEDS: morPHINE 2 MG SYG IVP ONE
[2025-01-26] MEDS: ondanSETRON 4MG INJ IVP PRN (00:04)
[2025-01-26 00:36] VITALS: BP 132/58; PULSE 99
[2025-01-26 04:00] VITALS: BP 111/40; PULSE 94; RESP 18; TEMP 98.3
--- NOTE | 2025-01-26 07:10 | PN ---
GASTROENTEROLOGY PROGRESS NOTE Date of Visit: January 26, 2025 Time of Visit: 07:07 Events / Notes: No acute events overnight. 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 She also has erosive gastritis. Review of Systems: CONSTITUTIONAL: No malaise or change in sensation of wellbeing. ENMT: No rhinorrhea, otorrhea, sinus pain, ear ache. CARDIOVASCULAR: No angina, palpitations, orthopnea or paroxysmal dyspnea. RESPIRATORY: No SOB. GASTROINTESTINAL: No abdominal pain, nausea, vomiting, diarrhea, hematemesis, melena or change in the patient's habitual bowel movements consistency/number. GENITOURINARY: No dysuria, hematuria or change in bladder continence. MUSCULOSKELETAL: No new muscle pain or decrease in muscular strength. No new joint swelling, redness or tenderness. SKIN: No new rash. Physical Exam: GEN: Awake, alert, oriented in person, time and place, and in no acute distress. HEENT: No sinus tenderness. Tympanic membranes were not examined. No rhinorrhea. Oral pharyngeal mucosa is pink, moist and within normal limits. Neck is supple with no cervical lymphadenopathy, thyromegaly or JVD. CHEST: Inspection, palpation and percussion of the chest were unremarkable. Lung auscultation revealed normal breath sounds bilaterally. CARDIAC: PMI is within normal limits. Heart sounds are regular. Normal S1, S2. No gallop or murmur. ABD: Soft, non-tender and not distended. No peritoneal signs on palpation. No organomegaly. Normal bowel sounds. EXT: No cyanosis or clubbing. No edema. SKIN: Intact. No rashes. JOINTS: No evidence of synovitis or acute arthritis. NEURO: Alert and oriented to name, place and person. Cranial nerve examination is unremarkable. No focal motor deficits. Normal speech. Gait is normal. Strength is normal. Vital Signs (last 8hr) Date Time Temp Pulse Resp B/P (MAP) Pulse Ox O2 Delivery O2 Flow Rate FiO2 01/26/25 04:00 98.2 94 18 111/40 99 Room Air 01/26/25 00:36 99 132/58 01/26/25 00:00 98.1 84 17 196/82 98 Room Air Laboratory: [ ] Laboratory: Test 01/25/25 11:33 01/25/25 05:10 Range/Units Whole Blood Glucose 89 70-110 MG/DL Bedside Glucose Comment Notified Nurse White Blood Count 6.5 4.8-10.8 K/uL Red Blood Count 4.15 4.00-5.50 MIL/uL Hemoglobin 11.3 L 12.0-16.0 g/dL Hematocrit 34.9 L 36-48 % Mean Corpuscular Volume 84.1 79-99 fL Mean Corpuscular Hemoglobin 27.2 27.0-33.0 pg Mean Corpuscular Hemoglobin Concent 32.4 32.0-36.0 g/dL Red Cell Distribution Width 15.0 11.0-15.5 % Platelet Count 388 130-400 K/uL Mean Platelet Volume 10.2 7.5-10.5 fL Immature Granulocyte % (Auto) 0.0 0-1 % Neutrophils (%) (Auto) 64.8 40.0-77.0 % Lymphocytes (%) (Auto) 19.4 L 21.0-51.0 % Monocytes (%) (Auto) 12.9 3.0-13.0 % Eosinophils (%) (Auto) 1.5 0.0-8.0 % Basophils (%) (Auto) 1.4 0.0-5.0 % Neutrophils # (Auto) 4.2 1.8-7.7 K/uL Lymphocytes # (Auto) 1.3 1.0-4.8 K/uL Monocytes # (Auto) 0.8 0.1-1.0 K/uL Eosinophils # (Auto) 0.10 0.00-0.70 K/uL Basophils # (Auto) 0.09 0.00-0.20 K/uL Absolute Immature Granulocyte (auto 0.00 0-1 K/uL Nucleated Red Blood Cells 0.0 0.0-0.19 % Sodium Level 140 136-145 mmol/L Potassium Level 3.6 3.5-5.1 mmol/L Chloride Level 103 101-111 mmol/L Carbon Dioxide Level 27 21-32 mmol/L Blood Urea Nitrogen 6 L 7-18 mg/dL Creatinine 0.4 L 0.5-1.0 mg/dL Glomerular Filtration Rate Calc 109 >90 mL/min Random Glucose 105 70-105 mg/dL Total Calcium 9.0 8.5-10.1 mg/dL Total Bilirubin 0.4 0.2-1.0 mg/dL Aspartate Amino Transf (AST/SGOT) 95 H 10-37 U/L Alanine Aminotransferase (ALT/SGPT) 53 12-78 U/L Alkaline Phosphatase 124 50-136 U/L C-Reactive Protein, Quantitative 6.80 H 0.5-3.0 mg/L Total Protein 6.2 6.0-8.3 g/dL Albumin 3.2 L 3.5-5.0 g/dL Current Medications Medications (Trade) Dose Ordered Sig/Sarah Route PRN Reason Start Time Stop Time Status Last Admin Dose Admin Acetaminophen (TYLenol 325MG TAB) 650 mg Q6H PRN PO FEVER/MILD PAIN LEVEL 1-3 01/20/25 03:00 02/19/25 02:59 Acetaminophen (TYLenol 650MG SUPPOSITORY) 650 mg Q6H PRN RC FEVER / MILD PAIN 1-3 IF NPO 01/20/25 03:00 02/19/25 02:59 Ceftriaxone Sodium (Rocephin 2gm Inj) 2 gm Q24H IVPB 01/21/25 01:00 01/31/25 00:59 01/26/25 02:00 2 GM Dextrose (D50w) 50 ml AD PRN IV HYPOGLYCEMIA PROTOCOL 01/20/25 12:00 02/19/25 11:59 01/20/25 16:56 50 ML Dicyclomine HCl (Bentyl 20mg Tab) 10 mg TID PRN PO abdominal pain 01/24/25 12:30 02/23/25 12:29 Docusate Sodium (COLace 100MG CAP) 100 mg BID PRN PO c 01/20/25 03:00 02/19/25 02:59 Enoxaparin Sodium (Lovenox) 30 mg DAILY SQ 01/20/25 09:00 02/19/25 08:59 01/25/25 09:30 30 MG Famotidine (Pepcid 20mg Tab) 20 mg BID PO 01/20/25 09:00 01/25/25 10:49 DC 01/25/25 09:30 20 MG Ferrous Sulfate (Ferrous Sulfate) 325 mg DAILY PO 01/20/25 09:00 02/19/25 08:59 01/25/25 09:30 325 MG Glucagon (Glucagon 1mg Kit) 1 mg AD PRN IM HYPOGLYCEMIA PROTOCOL 01/20/25 12:00 02/19/25 11:59 Hydralazine HCl (APRESOLine 20MG INJ) 10 mg Q6H PRN IV SBP GREATER THAN 160 01/20/25 03:00 02/19/25 02:59 01/25/25 23:22 10 MG Insulin Human Regular (humuLIN R 100 UNIT/ML 3ML) INSULIN SLIDING SCAL... ACHS SQ 01/20/25 07:30 02/19/25 07:29 Ketorolac Tromethamine (toRADol) 15 mg Q6H PRN IV MODERATE PAIN (4-6) 01/20/25 06:00 01/25/25 05:59 DC 01/25/25 00:23 15 MG Lactated Ringer's 1,000 ml @ 75 mls/hr [id number] IV 01/20/25 03:00 02/19/25 02:59 01/25/25 15:00 75 MLS/HR Lactulose (Constulose 20gm/ 30ml Udcup) 20 gm Q6H PRN PO CONSTIPATION 01/20/25 03:00 02/19/25 02:59 Lidocaine (Lidocaine Patch 4%) 1 each DAILY TP 01/24/25 09:00 01/23/25 18:55 DC Lidocaine (Lidocaine Patch 4%) 1 each Q24H TP 01/23/25 19:00 02/22/25 18:59 01/25/25 22:12 1 EACH Lisinopril (Prinivil 2.5mg) 2.5 mg DAILY PO 01/26/25 09:00 02/25/25 08:59 Metronidazole/ Sodium Chloride (flaGYL) 500 mg Q8H IV 01/20/25 17:00 01/30/25 16:59 01/26/25 02:00 500 MG Ondansetron HCl (zoFRAN 4MG INJ) 4 mg Q6H PRN IVP NAUSEA/VOMITING 01/20/25 03:00 02/19/25 02:59 01/26/25 00:04 4 MG Pantoprazole Sodium (PROTonix 40MG TAB) 40 mg BID PO 01/25/25 21:00 02/24/25 20:59 01/25/25 20:31 40 MG Potassium Chloride 100 ml @ 100 mls/hr AD PRN IV POTASSIUM PROTOCOL 01/20/25 16:30 02/19/25 16:29 01/21/25 10:09 100 MLS/HR Potassium Chloride (K-Dur/Klor-Con 20meq) 20 meq AD PRN PO POTASSIUM PROTOCOL 01/20/25 16:30 01/24/25 07:47 DC Potassium Chloride (K-Dur/Klor-Con 20meq) 20 meq AD PRN PO POTASSIUM PROTOCOL 01/21/25 17:30 02/20/25 17:29 Potassium Chloride (KCl 10% Elixir 20meq/15ml) 20 meq AD PRN PO POTASSIUM PROTOCOL 01/20/25 16:30 01/24/25 07:46 DC 01/23/25 18:20 20 MEQ Potassium Chloride (KCl 10% Elixir 20meq/15ml) 20 meq AD PRN PO POTASSIUM PROTOCOL 01/21/25 17:30 02/20/25 17:29 01/25/25 09:30 20 MEQ Temazepam (restORIL 15 MG CAP) 15 mg HS PRN PO INSOMNIA/SLEEP 01/20/25 03:00 02/19/25 02:59 01/21/25 23:26 15 MG Diagnostics / Radiology: [COPY/PASTE HERE IF NO REPORTS PLEASE DELETE SECTION] Assessment: Abdominal pain N/V Constipation Abnormal imaging revealing enterocolitis Plan: Continue with Gastric emptying scan when available Continue GI prophylaxis Advance diet as tolerated Avoid NSAIDs Antireflux measures Monitor H&H and transfuse as needed Call with questions, concerns or change in clinical status Patient to follow-up at clinic post discharge Thank you for this consult BRITT CHANDLER January 26, 2025 07:09
[2025-01-26 07:55] VITALS: BP 141/59; PULSE 83; RESP 16; TEMP 98.2
[2025-01-26 08:04] LABS: MEAN CORPUSCULAR HGB CONC 32.9 g/dL (32.0-36.0); MEAN CORPUSCULAR VOLUME 82.2 fL (79-99); RED BLOOD CELL COUNT(AUTO) 4.26 MIL/uL (4.00-5.50); RED CELL DISTRIBUTION WIDTH 15.2 % (11.0-15.5); WHITE BLOOD COUNT (AUTO) 6.3 K/uL (4.8-10.8)
[2025-01-26 08:14] VITALS: O2SAT 98
[2025-01-26] MEDS: LISINOPRIL 2.5 MG TABLET PO SCH (08:14)
[2025-01-26 08:18] LABS: BILIRUBIN,TOTAL 0.4 mg/dL (0.2-1.0); CREATININE 0.5 mg/dL (0.5-1.0); POTASSIUM 3.6 mmol/L (3.5-5.1); TOTAL PROTEIN, SERUM 5.8 g/dL (6.0-8.3)
--- NOTE | 2025-01-26 08:26 | NUR ---
MEDICATION REFUSED Patient refused AM Iron and Lovenox medication. Education provided patient still refused.
[2025-01-26] MEDS ORDERED: DICY10 PO (11:41)
[2025-01-26] MEDS ORDERED: PANT40TA55 PO (11:50)
[2025-01-26] MEDS ORDERED: METO5TAB2 PO (11:50)
[2025-01-26] MEDS ORDERED: AMOX600S42 PO (11:50)
[2025-01-26] MEDS ORDERED: ONDA-243 PO (11:50)
[2025-01-26 11:55] VITALS: BP 126/81; PULSE 102; RESP 18; TEMP 98.4
[2025-01-26] MEDS ORDERED: TRAM-543 PO (12:00)
--- NOTE | 2025-01-26 12:00 | PN ---
[facility] PROGRESS NOTE Date of Service: January 26, 2025 Time of Service: 11:52 SUBJECTIVE: Patient is a 64 year old female with a past medical history of Scleroderma presented to the Emergency Department with complaints of abdominal pain for 1 week, along with nausea, vomiting, and constipation. The patient denies diarrhea, fever, shortness of breath, and chest pain. The patient reports her last bowel movement was [address] scan of the abdomen and pelvis showed fluid filled small bowel loops and colon suggestive of enterocolitis. The patient states that on FridayJanuary 16, she had episodes of diarrhea that lasted for 1 day. The following January 18, the patient reports experiencing episodes of abdominal bloating, and a loss of appetite. The patient states that the abdominal bloating and abdominal pain lasted throughout the entire night, and by Friday she took a whole bottle of magnesium citrate to help alleviate her pain. The patient states that by 7pm, she began have episodes of vomiting, and constipation. The patient states that she had a bowel obstruction 10 years ago. The patient does not report taking any medications at home. 01/20: Patient was seen and examined this morning at bedside. Patient continues on Ceftriaxone. Patient denies chest pain, shortness of breath, nausea, vomiting, fever, chills, diarrhea. The patient reports her abdominal pain is a 4/10 on the pain scale, and that the tenderness is worse in the left upper quadrant of her abdomen. The patient reports 3 episodes of diarrhea this morning, but denies passing gas. The patient is currently NPO except for ice chips. The patient is afebrile, saturating well on room air. Per nurse, the patients blood pressure has been high. Once pain medication is given, there is a significant drop to her blood pressure. We will continue to monitor the patient. The patient will be getting a abdominal x-ray in the AM. 01/21: Patient was seen and examined this morning at bedside. The patient denies chest pain, shortness of breath, nausea, vomiting, fever, chills. The patient reports having a soft, loose bowel movement this morning. The patient denies flatulence. The patient is clinically looking well. We have advanced her diet to clear liquid diet. A abdominal x-ray was done this morning, which showed a norm al abdomen and no signs of obstruction. We will continue to monitor the patient, and advance the diet as tolerated. 01/22/25 patient was seen and examined. Case discussed with RN and family by the bedside. She reports significant pain in the left flank that comes and goes and is requiring morphine. She was still not passing gas. We will get renal ultrasound ordered. We will also have GI and surgery evaluate the patient 01/23: Patient was seen and examined this morning at bedside. The patient states she is feeling much better. Patient states she still has dull pain in her left upper quadrant. The patient rates it a 4/10 on the pain scale. The patient states she is passing stool, and believes she has passed gas. The patient denies nausea, vomiting, fever, chills, diarrhea, constipation. Renal ultrasound came back negative. Abdominal x-ray is negative for obstruction. Her abdominal pain is likely due to pseudo-obstruction due to dysmotility from her history of Scleroderma. GI has been consulted, we will appreciate their recommendations. Surgery was consulted, and denies any surgical intervention. We will obtain a gastric emptying study. 01/24: Patient was seen and examined this morning at bedside. Patient still reports pain in her left upper quadrant. Patient was on clear liquid diet, and states that she feels bloated and has intractable abdominal pain after eating. The patient will be undergoing gastric emptying study today, and is currently NPO. The patient will be started on Bentyl for abdominal pain. GI has been consulted due to intractable abdominal pain and scleroderma effecting esophagus. Patient has not passed gas. Patient had bowel movement this morning. 01/25: Patient was seen and examined this morning at bedside. Patient is s/p EGD today. EGD results were reviewed with patient. Patients diet has been advanced to clear liquid diet. We will advance the diet as tolerated. The patient did not get gastric emptying study due to the machine being down. Patient started on 40mg Protonix BID as per GI recommendations. Patient started on 2.5 mg of Lisinopril for elevated blood pressure. No oral potassium replacement, only IV due to oral replacement potential to worsen abdominal inflammation. 01/26: Patient was seen and examined this morning at bedside. Patient diet has been advanced to soft GI diet. Patients gastric emptying study showed severe gastroparesis. Patient continues on Lisinopril for elevated blood pressure. Patient advised to continue with clear liquid diet, and advance the diet slowly to GI soft diet as tolerated. Patient will be sent home on different medications, which have been explained to her and her in detail. REVIEW OF SYSTEMS 12-point ROS reviewed with the patient. All pertinent positives mentioned above . Otherwise negative, noncontributory, nonpertinent. PHYSICAL EXAM GENERAL APPEARANCE: The patient is awake, alert, and oriented, in no acute cardiopulmonary distress. NEUROLOGICAL: Cranial nerves II-XII grossly intact. Motor is 5/5 in bilateral upper and lower extremities proximal to distal. No sensory deficits. HEENT: Face is symmetric. Pupils are equal and reactive. Extraocular movements are intact. NECK: Supple. No JVD. No thyromegaly. No submental, submandibular, pre- /postauricular, occipital or supraclavicular lymphadenopathy. CHEST: Normal chest expansion. No Telemetry. LUNGS: Absence of any rales, rhonchi or any wheezing. CARDIOVASCULAR: Regular. S1 and S2 normal. No appreciable rubs, murmurs or gallops. ABDOMEN: Soft, nondistended. Tenderness in left upper quadrant. There is no rebound, voluntary guarding, or rigidity. Bowel sounds heard in all four quadrants. : Deferred. No [place]. EXTREMITIES: Non-edematous and not cyanotic. No clubbing. Good capillary refill. SKIN: No skin breakdown. Vital Signs (last 8hr) Date Time Temp Pulse Resp B/P (MAP) Pulse Ox O2 Delivery O2 Flow Rate FiO2 01/26/25 08:14 98 Room Air* 0 21 01/26/25 07:55 98.2 83 16 141/59 98 Room Air 01/26/25 04:00 98.2 94 18 111/40 99 Room Air LABS: Laboratory: Test 01/26/25 07:36 01/25/25 11:33 01/25/25 05:10 Range/Units White Blood Count 6.3 4.8-10.8 K/uL Red Blood Count 4.26 4.00-5.50 MIL/uL Hemoglobin 11.5 L 12.0-16.0 g/dL Hematocrit 35.0 L 36-48 % Mean Corpuscular Volume 82.2 79-99 fL Mean Corpuscular Hemoglobin 27.0 27.0-33.0 pg Mean Corpuscular Hemoglobin Concent 32.9 32.0-36.0 g/dL Red Cell Distribution Width 15.2 11.0-15.5 % Platelet Count 384 130-400 K/uL Mean Platelet Volume 10.2 7.5-10.5 fL Nucleated Red Blood Cells 0.0 0.0-0.19 % Sodium Level 140 136-145 mmol/L Potassium Level 3.6 3.5-5.1 mmol/L Chloride Level 103 101-111 mmol/L Carbon Dioxide Level 27 21-32 mmol/L Blood Urea Nitrogen 13 7-18 mg/dL Creatinine 0.5 0.5-1.0 mg/dL Glomerular Filtration Rate Calc 103 >90 mL/min Random Glucose 83 70-105 mg/dL Total Calcium 8.6 8.5-10.1 mg/dL Total Bilirubin 0.4 0.2-1.0 mg/dL Aspartate Amino Transf (AST/SGOT) 81 H 10-37 U/L Alanine Aminotransferase (ALT/SGPT) 57 12-78 U/L Alkaline Phosphatase 115 50-136 U/L C-Reactive Protein, Quantitative 5.40 H 0.5-3.0 mg/L Total Protein 5.8 L 6.0-8.3 g/dL Albumin 3.0 L 3.5-5.0 g/dL Whole Blood Glucose 89 70-110 MG/DL Bedside Glucose Comment Notified Nurse Immature Granulocyte % (Auto) 0.0 0-1 % Neutrophils (%) (Auto) 64.8 40.0-77.0 % Lymphocytes (%) (Auto) 19.4 L 21.0-51.0 % Monocytes (%) (Auto) 12.9 3.0-13.0 % Eosinophils (%) (Auto) 1.5 0.0-8.0 % Basophils (%) (Auto) 1.4 0.0-5.0 % Neutrophils # (Auto) 4.2 1.8-7.7 K/uL Lymphocytes # (Auto) 1.3 1.0-4.8 K/uL Monocytes # (Auto) 0.8 0.1-1.0 K/uL Eosinophils # (Auto) 0.10 0.00-0.70 K/uL Basophils # (Auto) 0.09 0.00-0.20 K/uL Absolute Immature Granulocyte (auto 0.00 0-1 K/uL Current Medications Medications (Trade) Dose Ordered Sig/Sarah Route PRN Reason Start Time Stop Time Status Last Admin Dose Admin Acetaminophen (TYLenol 325MG TAB) 650 mg Q6H PRN PO FEVER/MILD PAIN LEVEL 1-3 01/20/25 03:00 02/19/25 02:59 Acetaminophen (TYLenol 650MG SUPPOSITORY) 650 mg Q6H PRN RC FEVER / MILD PAIN 1-3 IF NPO 01/20/25 03:00 02/19/25 02:59 Ceftriaxone Sodium (Rocephin 2gm Inj) 2 gm Q24H IVPB 01/21/25 01:00 01/31/25 00:59 01/26/25 02:00 2 GM Dextrose (D50w) 50 ml AD PRN IV HYPOGLYCEMIA PROTOCOL 01/20/25 12:00 02/19/25 11:59 01/20/25 16:56 50 ML Dicyclomine HCl (Bentyl 20mg Tab) 10 mg TID PRN PO abdominal pain 01/24/25 12:30 02/23/25 12:29 Docusate Sodium (COLace 100MG CAP) 100 mg BID PRN PO c 01/20/25 03:00 02/19/25 02:59 Enoxaparin Sodium (Lovenox) 30 mg DAILY SQ 01/20/25 09:00 02/19/25 08:59 01/25/25 09:30 30 MG Famotidine (Pepcid 20mg Tab) 20 mg BID PO 01/20/25 09:00 01/25/25 10:49 DC 01/25/25 09:30 20 MG Ferrous Sulfate (Ferrous Sulfate) 325 mg DAILY PO 01/20/25 09:00 02/19/25 08:59 01/25/25 09:30 325 MG Glucagon (Glucagon 1mg Kit) 1 mg AD PRN IM HYPOGLYCEMIA PROTOCOL 01/20/25 12:00 02/19/25 11:59 Hydralazine HCl (APRESOLine 20MG INJ) 10 mg Q6H PRN IV SBP GREATER THAN 160 01/20/25 03:00 02/19/25 02:59 01/25/25 23:22 10 MG Insulin Human Regular (humuLIN R 100 UNIT/ML 3ML) INSULIN SLIDING SCAL... ACHS SQ 01/20/25 07:30 02/19/25 07:29 Ketorolac Tromethamine (toRADol) 15 mg Q6H PRN IV MODERATE PAIN (4-6) 01/20/25 06:00 01/25/25 05:59 DC 01/25/25 00:23 15 MG Lactated Ringer's 1,000 ml @ 75 mls/hr [id number] IV 01/20/25 03:00 02/19/25 02:59 01/25/25 15:00 75 MLS/HR Lactulose (Constulose 20gm/ 30ml Udcup) 20 gm Q6H PRN PO CONSTIPATION 01/20/25 03:00 02/19/25 02:59 Lidocaine (Lidocaine Patch 4%) 1 each DAILY TP 01/24/25 09:00 01/23/25 18:55 DC Lidocaine (Lidocaine Patch 4%) 1 each Q24H TP 01/23/25 19:00 02/22/25 18:59 01/25/25 22:12 1 EACH Lisinopril (Prinivil 2.5mg) 2.5 mg DAILY PO 01/26/25 09:00 02/25/25 08:59 01/26/25 08:14 2.5 MG Metronidazole/ Sodium Chloride (flaGYL) 500 mg Q8H IV 01/20/25 17:00 01/30/25 16:59 01/26/25 08:14 500 MG Ondansetron HCl (zoFRAN 4MG INJ) 4 mg Q6H PRN IVP NAUSEA/VOMITING 01/20/25 03:00 02/19/25 02:59 01/26/25 00:04 4 MG Pantoprazole Sodium (PROTonix 40MG TAB) 40 mg BID PO 01/25/25 21:00 02/24/25 20:59 01/26/25 08:14 40 MG Potassium Chloride 100 ml @ 100 mls/hr AD PRN IV POTASSIUM PROTOCOL 01/20/25 16:30 02/19/25 16:29 01/21/25 10:09 100 MLS/HR Potassium Chloride (K-Dur/Klor-Con 20meq) 20 meq AD PRN PO POTASSIUM PROTOCOL 01/20/25 16:30 01/24/25 07:47 DC Potassium Chloride (K-Dur/Klor-Con 20meq) 20 meq AD PRN PO POTASSIUM PROTOCOL 01/21/25 17:30 02/20/25 17:29 Potassium Chloride (KCl 10% Elixir 20meq/15ml) 20 meq AD PRN PO POTASSIUM PROTOCOL 01/20/25 16:30 01/24/25 07:46 DC 01/23/25 18:20 20 MEQ Potassium Chloride (KCl 10% Elixir 20meq/15ml) 20 meq AD PRN PO POTASSIUM PROTOCOL 01/21/25 17:30 02/20/25 17:29 01/25/25 09:30 20 MEQ Temazepam (restORIL 15 MG CAP) 15 mg HS PRN PO INSOMNIA/SLEEP 01/20/25 03:00 02/19/25 02:59 01/21/25 23:26 15 MG DIAGNOSTICS / RADIOLOGY: [place] [address] [address] IMAGING REPORT Signed PATIENT: DMITRI KELLY MR#: [id number] : 1960 SEX: F AGE: 64 LOCATION: 4DH ORDER 1401 STATUS: ADM IN REPORT#: [id number] SERVICE 1400 REASON: eval for gastroparesis in pt with scleroderma ORDERING PHYSICIAN: SHON GONZALEZ MD PROCEDURE: GASTEMP - NM GASTRIC EMPTYING STUDY Nuclear medicine gastric emptying study HISTORY: eval for gastroparesis in pt with scleroderma . COMPARISON: No relevant prior studies. RADIOPHARMACEUTICAL: 1 mCi of technetium 99 sulfur colloid TECHNIQUE: Dynamic computer imaging and serial static images were performed over the anterior abdomen for 1 hour. Static images obtained up to 2 hours. By region of interest computer analysis, a time/activity curve for the stomach was generated and a T 1/2 for clearance of activity was determined. FINDINGS: Review of dynamic images does not demonstrate any gastroesophageal reflux. The normal pattern of gastric emptying is appreciated. T 1/2: 397 minutes (normal 55-90 minutes). Percent empty at 1 hour: 14 percent (less than 40 percent at one hour is consistent with delayed emptying). IMPRESSION: Severe gastroparesis. DICTATED BY: HARDIK KAUFMAN MD DATE: 01/25/251420 ELECTRONICALLY SIGNED BY: HARDIK KAUFMAN MD DATE: 01/25/251423 ASSESSMENT: Enterocolitis Scleroderma PLAN: Enterocolitis -IV fluids to maintain hydration and electrolyte balance. -Antibiotics: Ceftriaxone and Metronidazole. -Monitor electrolytes, and replace as needed. -Monitor for signs of obstruction: persistent vomiting, severe distention, absent bowel sounds. -Hypoglycemia protocol -Keep hgb >7, transfuse if below 7. -Abdominal x-ray in AM. Results showed normal bowel. -Renal ultrasound- negative. -Gastric emptying study ordered. Unable to do due to machine being down. -Surgery consult if concern for worsening symptoms. Surgery denies any surgical intervention. -GI has been consulted for intractable abdominal pain and scleroderma, we will appreciate their recommendations. -Patient s/p EGD. 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 -Gastric emptying scan complete: severe gastroparesis. -40 mg protonix BID started as per GI recommendations. -Diet advanced to GI soft diet. This plan has been discussed and approved by my attending, SHON Alejandra MD January 26, 2025 12:00
--- NOTE | 2025-01-26 12:01 | DS ---
Discharge Summary Hospital Course Summary: Patient is a 64 year old female with a past medical history of Scleroderma who presented to the Emergency Department with complaints of abdominal pain for 1 week, along with nausea, vomiting, and constipation. The patient denied diarrhea, fever, shortness of breath, and chest pain. The patient reports her last bowel movement was approximately 3 days ago. The patient states that on FridayJanuary 16, she had episodes of diarrhea that lasted for 1 day. The following Friday, January 18, the patient reports experiencing episodes of abdominal bloating, and a loss of appetite. The patient states that the abdominal bloating and abdominal pain lasted throughout the entire night, and by Friday she took a whole bottle of magnesium citrate to help alleviate her pain. The patient states that by 7pm, she began have episodes of vomiting, and constipation. The patient states that she had a history of a bowel obstruction 10 years ago. The patient does not report taking any medications at home. In the Emergency department, a CT scan of the abdomen and pelvis showed fluid filled small bowel loops and colon suggestive of enterocolitis. Antibiotic coverage with Flagyl and Ceftriaxone was started. Patient was placed NPO. The patient experienced intermttent episodes of hypertension that appeared to be pain-related. Follow administration of analgesic medication, patients blood pressure would decrease. Abdominal x-ray was ordered, which showed a normal abdomen and no signs of obstruction. The patients diet was advanced to a clear liquid diet. The patient reported bowel movements, but no flatulence. The following day, the patient reported significant pain in the left flank, that is sharp in nature. Renal ultrasound was ordered. Gastroenterology and General surgery were consulted. Renal ultrasound showed normal renal anatomy. General surgery denied any surgical intervention. Gastroenterology recommended an EGD. A gastric emptying study was ordered to evaluate for gastroparesis due to patients history of scleroderma. Patients EGD results showed a dilated atonic esophagitis with peptic structure, consistent with scleroderma s/p balloon dilation and biopsy, and erosive gastritis. Gastric emptying study revealed severe gastroparesis, the percent emptying at 1 hour to be approximally 14%. Patient was started on 2.5 mg dose of Lisinopril due to consistently elevated blood pressure. Patients diet was advanced from clear liquid to GI soft diet as tolerated. The patient was deemed stable for discharge. Patient will be discharged on Lisinopril due to her elevated blood pressure. Patient was advised to obtain a blood pressure cuff from her nearest pharmacy, and monitor her blood pressure. Patient was advised to hold Lisinopril if blood pressure is < 120/80. Patient verablized understanding. Patient will be discharged on new medication to help manage her scleroderma, including Bentyl for her abdominal cramping and Metoclopramide to improve her gastric motility. Patients was advised to avoid all NSAIDs due to her history of erosive gastritis. Patient will be discharged with Tramadol, and was advised to take it for moderate to severe pain as needed. Since the patient will be discharged with several new medications, I provided the patient with a detailed list of her new medications that included directions on when and how to properly take the medication prescribed. Since the patient is from the [facility], we advised the patient to contact the GI clinic and obtain her EGD biopsy results. The phone number to the GI clinic was provided to the patient. All questions were answered, and the patient voiced understanding of all the changes made to her medication regimen. The patient was advised to follow up with her Gastroenterology clinic and her primary care physician within 1 week upon discharge. Drywall Mechanic(s): Gastroenterology, General surgery Procedure(s): [place] [address] [address] IMAGING REPORT Signed PATIENT: DMITRI KELLY MR#: [id number] : 1960 SEX: F AGE: 64 LOCATION: [facility] ORDER 1401 STATUS: ADM IN REPORT#: [id number] SERVICE 1400 REASON: eval for gastroparesis in pt with scleroderma ORDERING PHYSICIAN: SHON GONZALEZ MD PROCEDURE: GASTEMP - NM GASTRIC EMPTYING STUDY Nuclear medicine gastric emptying study HISTORY: eval for gastroparesis in pt with scleroderma . COMPARISON: No relevant prior studies. RADIOPHARMACEUTICAL: 1 mCi of technetium 99 sulfur colloid TECHNIQUE: Dynamic computer imaging and serial static images were performed over the anterior abdomen for 1 hour. Static images obtained up to 2 hours. By region of interest computer analysis, a time/activity curve for the stomach was generated and a T 1/2 for clearance of activity was determined. FINDINGS: Review of dynamic images does not demonstrate any gastroesophageal reflux. The normal pattern of gastric emptying is appreciated. T 1/2: 397 minutes (normal 55-90 minutes). Percent empty at 1 hour: 14 percent (less than 40 percent at one hour is consistent with delayed emptying). IMPRESSION: Severe gastroparesis. DICTATED BY: HARDIK KAUFMAN MD DATE: 01/25/25 1421 ELECTRONICALLY SIGNED BY: HARDIK KAUFMAN MD DATE: 01/26/25 1208 [place] [id number] [id number] IMAGING REPORT Signed PATIENT: DMITRI KELLY MR#: [id number] : 1960 SEX: F AGE: 64 LOCATION: [facility]DH ORDER 1249 STATUS: ADM IN REPORT#: [id number] SERVICE 1247 REASON: LOWER BACK PAIN ORDERING PHYSICIAN: RITA EDMONDSON MD PROCEDURE: RENAL - US RENAL SONOGRAM Exam Type: US RENAL SONOGRAM Clinical Information: LOWER BACK PAIN Comparison: None Findings: Examination shows normal renal size and echogenicity bilaterally. Preserved cortical thickness and corticomedullary junction region is seen. No hydronephrosis or calculi are seen. No renal masses are seen. There is no evidence of perinephric fluid on either side. No evidence of significant ureteral dilatation is seen. The urinary bladder is normal. No bladder masses, stones, or wall thickening is seen. IMPRESSION: Normal renal anatomy bilaterally. DICTATED BY: HARDIK KAUFMAN MD DATE: 01/22/25 1743 ELECTRONICALLY SIGNED BY: HARDIK KAUFMAN MD DATE: 01/22/25 [address] [place] [id number] [id number] IMAGING REPORT Signed PATIENT: DMITRI KELLY MR#: [id number] : 1960 SEX: F AGE: 64 LOCATION: [facility] ORDER 2300 STATUS: ADM IN REPORT#: [id number] SERVICE 0600 REASON: enterocolitis vs sbo ORDERING PHYSICIAN: SHON GONZALEZ MD PROCEDURE: ABD 1VW - ABD 1VW Exam Type: ABD 1VW Clinical Information: enterocolitis vs sbo Comparison: None Findings: Abdomen demonstrates no evidence of pathologic calcification or soft tissue mass. There are no radiopacities to suggest calculous disease. The intestinal gas pattern is within normal limits without evidence of dilatation to suggest obstruction or adynamic ileus. The bony structures are unremarkable. IMPRESSION: Normal abdomen. DICTATED BY: HARDIK KAUFMAN MD DATE: 01/21/25 104 ELECTRONICALLY SIGNED BY: HARDIK KAUFMAN MD DATE: 01/21/25 [address] [place] [id number] [place] [id number] IMAGING REPORT Signed PATIENT: DMITRI KELLY MR#: [id number] : 1960 SEX: F AGE: 64 LOCATION: [facility] ORDER 56 STATUS: [facility] REPORT#: [id number] SERVICE 55 REASON: R/O obstruction, generalized abdominal pain ORDERING PHYSICIAN: DANIEL VELASQUEZ PROCEDURE: ABD PEL W - CT ABDOMEN/PELVIS W/CONTRAST CT ABDOMEN/PELVIS W/CONTRAST HISTORY: Abdominal pain COMPARISON: None TECHNIQUE: Multiple sequential axial images of the abdomen and pelvis were obtained from the dome of the diaphragm through symphysis pubis. Patient was given 75 cc of Omnipaque through intravenous route. Oral contrast was not given. FINDINGS: There are interstitial fibrosis with bronchiectasis. No pleural effusion is seen bilaterally. There is no evidence of parenchymal disease or pulmonary nodule of the visualized lower lungs. Degenerative changes of the thoracolumbar spine are present. The heart is not enlarged. Liver is borderline enlarged measuring 16 cm. There is fluid filled small bowel loops and colon suggestive of enterocolitis. The liver, spleen, adrenal glands and pancreas are unremarkable. There is no evidence of hydronephrosis bilaterally. No evidence of renal stone is seen. Fecal material is seen in the colon. There are normal size retroperitoneal and mesenteric lymph nodes. No ascites is seen. No CT evidence of acute sinusitis is seen. Pelvic sidewalls are symmetric bilaterally. Bladder is moderately distended. IMPRESSION: 1. Fluid-filled small bowel loops and colon suggestive of enterocolitis. CT was performed with one or more following dose reduction techniques: automated exposure control, adjustment of the mA and kv according to patient's size, or use of a iterative reconstruction technique. DICTATED BY: ALEX MEADE MD DATE: 01/20/2520 ELECTRONICALLY SIGNED BY: ALEX MEADE MD DATE: 01/20/2527 RUN DATE: 01/21/25 [facility] [address] RUN TIME: 1925 [address] [address], [place] [address] Department of [employer] CLIA # [id number] Library Media Technician: Stephan Waddell DO Specimen Report PATIENT: DMITRI KELLY ACCT: [id number] LOC: [facility] U: [id number] AGE/SX: 64/F ROOM: 423 RE01/20/[address]: FABI DE PAZ MD : 1960 BED: 1 DIS: STATUS: ADM IN TLOC: SPEC: [id number] RON: 01/19/25 STATUS: COMP REQ: [id number] RECD: 01/19/[address]: DANIEL VELASQUEZ SOURCE: URINE CC ENTR: 01/19/[address]: NOEL SPDESC: ORDERED: URINE CULTURE Procedure Result Ngozi Date-Time URINE CULTURE Final 01/21/25-1924 REPORT URINE <=10,000 CFU END OF REPORT Assessment/Plan: ASSESSMENT: Enterocolitis Scleroderma Discharge Instructions: Follow up appointments: Patient to follow up with Gastroenterology within 1 week upon discharge. Patient to follow up with PCP within 1 week upon discharge. Procedures: Gastric emptying study, EGD. Imaging: Attached to report Microbiology: Attached to report Activity: Ad johanna Home medications: n/a New medications: Lisinopril, Bentyl, Metoclopramide, Ondansetron, Protonix, Tramadol, Augmentin Teaching: We reinforced the importance of compliance with follow up appointments and medication compliance Emergency instructions: The patient was instructed to present to the nearest Emergency department or call 911 should their symptoms return or worsen. Home Medications: No Active Prescriptions or Reported Meds New Medications: Amoxicillin/Potassium Clav (Augmentin Es-600 Suspension) 600 Mg-42.9 Mg/5 Ml Susp.recon 600 MG PO BID for 7 Days, #75 ML Dicyclomine HCl (Bentyl) 10 Mg Cap 1 CAP PO Q6HPRN PRN for irritable bowel symptoms for 30 Days, #30 CAP 0 Refills Lisinopril (Lisinopril) 2.5 Mg Tablet 1 TAB PO DAILY for 30 Days, #30 TAB 0 Refills Metoclopramide HCl (Metoclopramide HCl) 5 Mg Tablet 1 TAB PO TID for 30 Days, #60 TAB 0 Refills Ondansetron (Ondansetron Odt) 4 Mg Tab.rapdis 4 MG PO TID PRN for NAUSEA for 30 Days, #90 TAB Pantoprazole Sodium (Protonix) 40 Mg Ectab 1 TAB PO BID for 30 Days, #60 TAB 0 Refills Tramadol HCl/Acetaminophen (Tramadol-Acetaminophn 37.5-325) 37.5 Mg-325 Mg Tablet 1 TAB PO TIDP PRN for pain for 7 Days, #20 TAB 0 Refills SHON GONZALEZ MD January 26, 2025 12:01
[2025-01-26] MEDS ORDERED: LISI2.5T13 PO (13:21)
--- NOTE | 2025-01-26 16:20 | NUR ---
PATIENT DISCHARGE PATIENT DISCHARGED PERIPHERAL IV DISCONTINUED. PRESCRIPTIONS GIVEN. PATIENT AWARE TO F/U WITH PCP. ALL QUESTIONS ANSWERED.
== END 2025-01-26 16:15 | disposition home or self-care (01) | DRG 392 ==
LOC: EDH 21:16 → EDHIP 21:17 → UNDOADMOB 21:17 → EDHIP 01-20 02:47 → OBSVTOIN 01-20 02:47 → 4DH 01-20 17:20
PROVIDERS: ADMIT Internal Medicine; ATTEND Internal Medicine
PROC: 0DB68ZX Excision of Stomach, Via Natural or Artificial Opening Endoscopic, Diagnostic (ICD-10-PCS; principal; 2025-01-25)
PROC: 0DB78ZX Excision of Stomach, Pylorus, Via Natural or Artificial Opening Endoscopic, Diagnostic (ICD-10-PCS; 2025-01-25)
PROC: 0D758ZZ Dilation of Esophagus, Via Natural or Artificial Opening Endoscopic (ICD-10-PCS; 2025-01-25)
DX: K22.2 Esophageal obstruction (principal); J90 Pleural effusion, not elsewhere classified; N30.00 Acute cystitis without hematuria; K29.70 Gastritis, unspecified, without bleeding; K52.9 Noninfective gastroenteritis and colitis, unspecified; J47.9 Bronchiectasis, uncomplicated; K59.00 Constipation, unspecified; M34.9 Systemic sclerosis, unspecified; E87.8 Other disorders of electrolyte and fluid balance, not elsewhere classified; D75.839 Thrombocytosis, unspecified; K44.9 Diaphragmatic hernia without obstruction or gangrene; R13.10 Dysphagia, unspecified; I10 Essential (primary) hypertension; K20.90 Esophagitis, unspecified without bleeding; K31.84 Gastroparesis; M54.50 Low back pain, unspecified; Z90.710 Acquired absence of both cervix and uterus; K29.00 Acute gastritis without bleeding
CPT/HCPCS: 36415; 43239; 43249; 74018; 74177; 76770; 78264; 80048; 80053; 80076; 80305; 81001; 82948; 83036; 83605; 83690; 83735; 84100; 84443; 85025; 85027; 85651; 86140; 87086; 96374; 99285; A4606; A9541; C1726; G0378; J0360; J0500; J0696; J1650; J1885; J2270; J2405; J2704; J3480; J3490; J7030; J7070; Q9967; A4215; A4222; A4223; A4620; A4657